=== PATIENT | female | born 1965 | race Caucasian/White ===

== ENCOUNTER → 2022-12-27 | Outpatient (OUT) | payer BC, SELFPAY ==
--- NOTE | 2022-12-27 10:32 | XR_ITS ---
The [address] [address] Patient Name: ANTIONETTE ANDRADE MRN: [id number] date: 1965 Sex: F Assigned Patient Location: [facility] Current Patient Location: RAD Accession/Order Number: [id number] Exam Date: 12/27/2022 10:38 Report Date: 12/27/2022 15:20 At the request of: BRUNO EDWARDS Procedure: XR ribs LT min 3V w CXR1V EXAMINATION: XR ribs LT min 3V w CXR1V HISTORY: Pleurodynia, R07.81 ; posterior, lateral, and anterior left rib pain since falling several days ago COMPARISON: No relevant comparison available. FINDINGS: LUNGS: Chronic elevation left hemidiaphragm and scarring within the lateral costophrenic angle. PLEURA: No pneumothorax, effusion, or pleural thickening. MEDIASTINUM: No visible mass or adenopathy. CARDIAC: No cardiomegaly or cardiac silhouette abnormality. RIBS: Old, healed left seventh rib fracture. OTHER: Negative. IMPRESSION: 1. No appreciable fracture or acute cardiopulmonary process. 2. Stable, old left seventh rib fracture lung with chronic diaphragm elevation/scarring within left lung base. Electronically authenticated by: JOSE MARIO Date: 12/27/2022 15:20
== END ==
LOC: RAD 10:26
PROVIDERS: PCP Family Medicine; Visit Provider Family Medicine
DX: R07.81 Pleurodynia (principal)
CPT/HCPCS: 71101

== ENCOUNTER 2023-03-07 08:01 | Outpatient (OUT) | payer BC, SELFPAY ==
--- NOTE | 2023-03-07 08:09 | CT_ITS ---
The [address] [address] Patient Name: ANTIONETTE ANDRADE MRN: [id number] date: 1965 Sex: F Assigned Patient Location: CT Current Patient Location: CT Accession/Order Number: [id number] Exam Date: 03/07/2023 08:13 Report Date: 03/07/2023 14:24 At the request of: DARRON SOLANO Procedure: CT chest wo con CT chest wo con HISTORY: History of left lung surgery. Solitary Pulmonary Nodule R91.1 COMPARISON: 12/09/2017. 06/19/2019. 02/13/2021. 02/25/2022. CT CHEST TECHNIQUE: Noncontrast axial CT images obtained from lung apices through lung bases. Coronal and sagittal reconstructions performed. Dose reduction techniques were achieved by using automated exposure control and/or adjustment of mA and/or kV according to patient size and/or use of iterative reconstruction technique. CT CHEST FINDINGS: Lower thyroid unremarkable. No axillary adenopathy. Thoracic spondylosis without acute bony process. Prior left thoracotomy and a few old chronic healed left rib deformities. Visualized upper abdomen demonstrates unchanged right hepatic lobe hemangioma back to 2018. Normal-sized adrenal glands. Normal heart and great vessel sizes. No mediastinal adenopathy. Atherosclerotic aorta without aneurysm. No pericardial effusion. 7 mm right apical noncalcified nodule on image 13 of series 3. Previous 6 in February 2022. 5 mm July 2021. 4 mm 2018. Just anterior and superomedial there is a chronic and unchanged focus of linear scarring back to 2019 not further follow-up. Prior postoperative change left upper lobectomy with associated volume loss and minimal scarring. No interval dominant mass lesion, active consolidation, or effusion. CT/CT chest wo con IMPRESSION: Continued gradual growth of right apical noncalcified nodule over multiple prior examinations. Suspicious for separate primary versus less likely slow-growing metastasis. Recommend CT-guided biopsy. Stable postoperative change in the left lung with lobectomy, volume loss and scarring. No other interval dominant lesion or acute process. Old chronic benign hepatic hemangioma. Electronically authenticated by: BENNETT SANCHEZ Date: 03/07/2023 14:24
[2023-03-07 08:11] LABS: Hemoglobin 16.9 g/dL (12.0-16.0)
--- NOTE | 2023-03-07 08:30 | RT_ITS ---
The [facility] Test Date: 2023-03-07 Pat Name: ANTIONETTE ANDRADE Department: Room: - Gender: Female Specialty Therapist: Suzy Vargas RRT : 1965 Requested By: Lam De La Torre Order Number: [id number] Reading MD: Lam De La Torre Interpretive Statements Pulmonary function testing was completed according to ATS criteria. Findings were considered accurate and reproducible. Both pre- and post-bronchodilator values utilized for spirometry. No prior studies available for comparison. Spirometry (based on pre-bronchodilator values): -FEV1/FVC: Low normal @ 72% -FEV1: Moderately reduced @ 65% -FVC: Reduced @ 70% -There is a positive bronchodilator response in FEV1 and FVC. Lung volumes by plethysmography: -RV: Normal @ 106% -TLC: Normal @ 90% Diffusion capacity: -DLCO: Mild reduction @ 71% when corrected for Hb 16.9g/dL -DLCO/VA: DLCO increases to 86% when corrected for alveolar volumes Flow-volume loop: -Moderate obstructive pattern Impressions: -Trend towards moderate obstruction on spirometry with normal lung volumes. Mild diffusion impairment which corrects for alveolar volumes as she had a partial lobectomy. Elevated hemoglobin could indicate secondary polycythemia. Overall study is compatible with COPD/emphysema with a bronchodilator response or asthma/COPD-overlap. Clinical correlation required. Electronically Signed On 03-14-2023 7:23:39 EDT by Lam De La Torre
[2023-03-07] MEDS: ALBUTEROL SULFATE 2.5 MG/3 ML VIAL NEB IH (09:08)
== END 2023-03-07 08:02 | disposition home or self-care (01) ==
LOC: CT 08:01
PROVIDERS: PCP Family Medicine; Visit Provider Internal Medicine
DX: R91.1 Solitary pulmonary nodule (principal); J43.2 Centrilobular emphysema
CPT/HCPCS: 36415; 71250; 85018; 94060; 94726; 94729

== ENCOUNTER 2023-03-15 11:27 | Outpatient (OUT) | payer BC, SELFPAY ==
[2023-03-18 03:07] LABS: Zinc Level 63 ug/dL (44-115)
== END 2023-03-15 11:28 | disposition home or self-care (01) ==
LOC: LAB 11:29
PROVIDERS: PCP Family Medicine
DX: L65.0 Telogen effluvium (principal)
CPT/HCPCS: 36415; 82607; 82728; 84439; 84481; 84630

== ENCOUNTER 2023-09-28 10:11 | Outpatient (OUT) | payer BC, SELFPAY ==
--- NOTE | 2023-09-28 10:16 | CT_ITS ---
The [address] [address] Patient Name: ANTIONETTE ANDRADE MRN: [id number] date: 1965 Sex: F Assigned Patient Location: CT Current Patient Location: CT Accession/Order Number: [id number] Exam Date: 09/28/2023 10:25 Report Date: 09/29/2023 11:59 At the request of: DARRON SOLANO Procedure: CT chest wo con EXAM: CT chest wo con HISTORY: Solitary Pulmonary Nodule R91.1 COMPARISON: 03/07/2023. TECHNIQUE: Noncontrast axial CT images obtained from lung apices through lung bases. Coronal and sagittal reconstructions performed. Dose reduction techniques were achieved by using automated exposure control and/or adjustment of mA and/or kV according to patient size and/or use of iterative reconstruction technique. FINDINGS: Lower thyroid unremarkable. No axillary adenopathy. Normal heart and great vessel sizes. No mediastinal adenopathy. Atherosclerotic aorta without aneurysm. No pericardial effusion. Right apical irregular pulmonary nodule, series 4 image 16, now measures 9 x 7 mm, previously 7 x 6 mm, when measured in a similar fashion. This has been seen on older examinations as well, measuring approximately 6 mm on February 2022, and 5 mm July 2021, and 4 mm on 2019. Left upper lobectomy changes again seen. No new consolidation, or pleural effusion. Mild degenerative thoracic spondylosis without acute bony process. Redemonstrated old chronic healed left rib deformities. Limited visualized upper abdomen again with a right hepatic lobe hemangioma. CT/CT chest wo con IMPRESSION: Further interval increase in the irregular solid nodule in the right lung apex. Attention on follow-up chest CT, PET/CT, versus tissue sampling. Electronically authenticated by: LIUDMILA ACHARYA Date: 09/29/2023 11:59
== END 2023-09-28 10:12 | disposition home or self-care (01) ==
LOC: CT 10:12
PROVIDERS: PCP Family Medicine; Visit Provider Internal Medicine
DX: R91.1 Solitary pulmonary nodule (principal)
CPT/HCPCS: 71250

== ENCOUNTER 2023-10-16 15:52 | Outpatient (OUT) | payer BC, SELFPAY ==
--- NOTE | 2023-10-16 17:00 | PE_ITS ---
[address] [address] Patient Name: ANTIONETTE ANDRADE MRN: [id number] date: 1965 Sex: F Assigned Patient Location: PETCT Current Patient Location: Accession/Order Number: [id number] Exam Date: 10/16/2023 16:53 Report Date: 10/17/2023 00:37 At the request of: DARRON SOLANO Procedure: PET skull to mid thigh NUCLEAR MEDICINE PET/CT HISTORY: Solitary pulmonary nodule. COMPARISON: CT chest 09/28/2023. PET/CT 05/17/2023. METHOD: 14.46 mCi of F-18 FDG was administered intravenously. PET images were obtained from the skull base through the midthigh levels in the axial plane. Reformatted images were performed in the sagittal and coronal planes. A low-dose, noncontrast CT scan was performed for attenuation correction and anatomical localization. A low dose, noncontrast and nondiagnostic CT scan was performed for attenuation correction and anatomic localization. Mediastinal blood pool SUV max 2.6 using the patient's body weight as the normalization method. FINDINGS: HEAD AND NECK: There are no metabolically active lymph nodes in the neck. CHEST: There are no metabolically active mediastinal, hilar, or axillary lymph nodes. The major airways are patent. There is no pericardial effusion. There is no evidence of abnormal metabolic uptake in the esophagus. There is no evidence of abnormal metabolic uptake in the lung parenchyma. There is a stable metabolically active right apical pulmonary nodule measuring 7 x 4 mm with a maximum SUV of 8.6. There are emphysematous changes. There are no pleural effusions. There is no pneumothorax. ABDOMEN AND PELVIS: There is no evidence of abnormal metabolic activity in the liver or adrenal glands. There is a stable nonmetabolically active solid mass in the right lobe of the liver. There is no evidence of abnormal metabolic active lymph nodes in the abdomen or pelvis. There is no free fluid. There is physiologic uptake in the urinary system and bowel. There is a nonmetabolically active stable calcified pelvic mass. There is a benign left adrenal adenoma. MUSCULOSKELETAL: There is no evidence of abnormal metabolically active bony lesions. PET/PET skull to mid thigh IMPRESSION: Stable metabolically active right apical pulmonary nodule. Recommend tissue sampling if not previously performed. Emphysema. Benign left adrenal adenoma. Stable non-metabolically active calcified pelvic mass. Stable non-metabolically active solid mass in the right lobe of the liver. Electronically authenticated by: BETSY MAXWELL Date: 10/17/2023 00:37
== END 2023-10-16 15:53 | disposition home or self-care (01) ==
LOC: PETCT 15:52
PROVIDERS: PCP Family Medicine; Visit Provider Internal Medicine
DX: R91.1 Solitary pulmonary nodule (principal); J43.9 Emphysema, unspecified
CPT/HCPCS: 78815; A9552

== ENCOUNTER 2023-11-09 12:36 | Outpatient (OUT) | payer BC, SELFPAY ==
[2023-11-09 12:47] LABS: Hemoglobin 15.2 g/dL (12.0-16.0)
--- NOTE | 2023-11-09 13:00 | RT_ITS ---
The [facility] Test Date: 2023-11-09 Pat Name: ANTIONETTE ANDRADE Department: Room: - Gender: Female Boiling House Oiler: Lexy Max RRT : 1965 Requested By: [id number] Order Number: [id number] Reading MD: Lam De La Torre Interpretive Statements Pulmonary function testing was completed according to ATS criteria. Findings were considered accurate and reproducible. Both pre- and post-bronchodilator values utilized for spirometry. Spirometry (based on pre-bronchodilator values): -FEV1/FVC: Low normal @ 71% -FEV1: Moderately reduced @ 72% (1.71L) -FVC: Mildly reduced @ 79% -ZEV07-23%: Reduced @ 49% -There is no significant bronchodilator response. Lung volumes by plethysmography (based on pre-bronchodilator values): -RV: Increased @ 133% -TLC: Normal @ 106% (4.87L) -Airway resistance: Increased @ 140% -Airway conductance: Decreased @ 37% Diffusion capacity: -DLCO: Mild reduction @ 72% when corrected for Hb 15.2g/dL Flow-volume loop: -Moderate obstructive pattern Prior PFT from 03/07/2023 and 12/28/2017 were available for comparison. -FEV1: 65% (1.54L) and 87% (2.19L) respectively -FVC: 70% and 88% respectively -T% (4.11L) and 109% (5.03L) respectively -DLCO: 71% and 76% respectively Impressions: -Spirometry trends towards moderate obstruction without a bronchodilator response. Elevated RV suggests air trapping. Mild diffusion impairment. Overall study is consistent with emphysema/COPD. There was a decline in pulmonary function across all parameters from 2017 to 2022, but since then, there has been mild improvement in spirometry and TLC. Clinical correlation required. Electronically Signed On 11-13-2023 7:53:47 EDT by Lam De La Torre
[2023-11-09] MEDS: ALBUTEROL SULFATE 2.5 MG/3 ML VIAL NEB IH (13:58)
== END 2023-11-09 12:37 | disposition home or self-care (01) ==
LOC: CARD 12:37
PROVIDERS: PCP Family Medicine; Visit Provider Thoracic Surgery (Cardiothoracic Vascular Surgery)
DX: C34.92 Malignant neoplasm of unspecified part of left bronchus or lung (principal); R06.02 Shortness of breath
CPT/HCPCS: 36415; 85018; 94060; 94726; 94729

== ENCOUNTER 2023-11-14 10:03 | Outpatient (OUT) | payer BC, SELFPAY ==
--- NOTE | 2023-11-14 11:04 | W.PM.PROCNOT ---
Date of procedure: 11/14/23 Procedure: Procedure 6-minute walk Date 11/14/2023 Indication Non-small cell lung carcinoma of right lung [facility] 1 Procedure A 6-minute walk was initiated according to standard protocol. Resting BP: 130/90 HR: 73 SpO2: 94% FiO2: Room air Kye: 0 Patient ambulated for a total of 6 minutes. Maximum HR was 95. Lowest SpO2 was 93% on room air. Maximum Kye was 2. Patient was recovered Recovery BP: 140/80 HR: 70 SpO2: 95% FiO2: Room air Total number of stops: None Total Distance walked: 354m which is 95% of predicted walk distance Impressions: No ambulatory desaturations. Excellent walk distance. Asymptomatic. Recommendations: No supplemental O2 required on ambulation. Clinical correlation required.
== END 2023-11-14 10:04 | disposition home or self-care (01) ==
LOC: CARD 10:03
PROVIDERS: PCP Family Medicine
DX: C34.91 Malignant neoplasm of unspecified part of right bronchus or lung (principal)
CPT/HCPCS: 94618

== ENCOUNTER 2024-08-23 09:15 | Outpatient (OUT) | payer BC, SELFPAY ==
--- NOTE | 2024-08-23 09:18 | CT_ITS ---
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 Dose reduction techniques were achieved by using automated exposure control and/or adjustment of mA and/or kV according to patient size and/or use of iterative reconstruction technique. FINDINGS: LUNGS: Stable speculated nodular opacity within right lung medial apex and stable tiny nodular/wispy opacity within lateral apex. Prior left lobectomy. Stable lateral left midlung pleural scarring. Mild emphysematous changes bilaterally. PLEURA: No mass, effusion, or pneumothorax. VASCULATURE: No abnormality. MARY: Multiple calcified left hilar lymph nodes. No enlarged or suspicious lymph nodes. MEDIASTINUM: No mass or pathologic adenopathy. CARDIAC: No enlargement, pericardial thickening, or pericardial effusion. Coronary Artery calcifications: AORTA: No aneurysm or dissection. CHEST WALL: No mass or axillary adenopathy BONES: Prior resection of a small segment of posterior left sixth rib and suspect old healed fracture of lateral seventh rib. LIMITED ABDOMEN: Stable 3.1 cm irregular hypodense/heterogeneous area within anterior right hepatic lobe which has been present since at least 12/16/2017 and demonstrate early enhancement on that study suggesting a benign lesion, possibly a flash -fill hemangioma. Limited images of the upper abdomen. OTHER: Negative. CT/CT chest wo con IMPRESSION: 1. Stable spiculated nodular opacity within right lung apex and adjacent tiny nodular/wispy opacity. Neoplasm cannot be excluded, but there is been no change of address clerk the past 2 studies. Consider follow-up imaging in one year. 2. Stable left lung surgical changes and scarring. 3. No new lesions. 4. Stable hepatic lesions favoring benign etiology or possible flash-fill hemangioma.. Electronically authenticated by: JOSE MARIO Date: 08/26/2024 09:26
--- OUTSIDE RECORDS SUMMARY | 2024-08-23 09:19 | XMS_ITS | CCD ---
Author Organization [facility] CliniSymo Care Team Providers Care Drill Press Hand Name Role Phone CONNOR SOLANOHAN Attending Unavailable SAMSA, DARRON Admitting Unavailable GRACE, DR SHARDA Mcgovern Primary Care Unavailable Lexus, DR Palacio Consulting Unavailable SAMSA, DARRON Consulting Unavailable GRACE, DR SHARDA Mcgovern Admitting Unavailable WEST, DR VESTA Marcelo Consulting Unavailable EDWARDS, DR SHARDA Mcgovern Primary Care Unavailable EDWARDS, DR SHARDA Mcgovern Attending Unavailable EDWARDS, DR SHARDA Mcgovern Consulting Unavailable Lexus, DR Palacio Consulting Unavailable SAMSA, DARRON Attending Unavailable GARCE, DR SHARDA Mcgovern Primary Care Unavailable SAMSA, DARRON Admitting Unavailable SAMSA, DARRON Consulting Unavailable SAMSA, DARRON Attending Unavailable EDWARDS, DR SHARDA Mcgovern Primary Care Unavailable SAMSA, DARRON Admitting Unavailable EDWARDS, DR SHARDA Mcgovern Primary Care Unavailable SAMSA, DARRON Attending Unavailable SAMSA, DARRON Admitting Unavailable EDWARDS, DR SHARDA Mcgovern Primary Care Unavailable EDWARDS, DR SHARDA Mcgovern Consulting Unavailable GRACE, DR SHARDA Mcgovern Attending Unavailable EDWARDS, DR SHARDA Mcgovern Admitting Unavailable Sharda Edwards Unavailable Sharda Edwards Unavailable Unavailable Unavailable Dr. Sharda Edwards Primary Care Unav ailable Russ, Dr. Darron Palma Referring Unavailab Lucia Thomason Attending Unavailable MD Sharda Edwards Primary Care Provider [phone] MD Real Kowalski Attending Provider [phone] Real Kowalski Admitting Unavailable Real Kowalski Attending Unavailable Sharda Edwards Primary Care Unavailable BASIL, KELTON Attending Unavaila ble HADZIAHMETRADHA, KELTON Attending Unavaila ble HADZIAHMETRADHA, REBECCAA Referring Unavaila ble MELODY SANTANA Referring Unavailable HADZIAHMETOVIC, MERSIHA Referring Unavaila ble HADZIAHMETOVIC, MERSIHA Attending Unavaila ble OMBALLI, MOHAMED Attending Unavailable OMBALLI, MOHAMED Referring Unavailable HADZIAHMETOVIC, MERSIHA Attending Unavaila ble DERISO, REAL Referring Unavailable DERISO, REAL Referring Unavailable DERISO, REAL Referring Unavailable OMBALLI, MOHAMED Referring Unavailable HADZIAHMETOVIC, MERSIHA Attending Unavaila ble DERISO, REAL Referring Unavailable OMBALLI, MOHAMED Attending Unavailable HADZIAHMETOVIC, MERSIHA Referring Unavaila ble Allergies Allergy Classification Reported Allergen(s) Allergy Type Date of Onset Reaction(s) Facility (1 source) oxaprozin Drug Allergy 4 [facility] Repository (1 source) Losartan Drug Allergy 3 [facility] Other (8 sources) meloxicam; Translations: [MELOXICAM] Drug Allergy 8 FATIGUE, very tired [facility] (16 sources) oxaprozin; Translations: [OXAPROZIN] Drug Allergy 8 TEARFUL, makes patient cry, makes patient cry, TEARFUL [facility] (1 source) meloxicam Drug Allergy 8 [facility] Repository (1 source) oxaprozin Drug Allergy 8 [facility] Repository (8 sources) Mobic *ANALGESICS - ANTI-INFLAMMATO RY* Propensity to adverse reactions Comment:makes her tired [employer] Other (2 sources) Mobic *ANALGESICS - ANTI-INFLA Allergy to substance 4 Comment:makes her tired [facility] (1 source) varenicline; Translations: [VARENICLINE] Drug Allergy 4 [facility] Repository (1 source) ALLERGIES NOT ON FILE; Translations: [ALLERGIES NOT ON FILE] Propensity to adverse reactions (disorder) [facility] Repository Medications Current Medications Medication Drug Class(es) Dates Sig (Normalized) Sig (Original) ALPRAZolam 0.5 mg oral tablet (18 sources) Benzodiazepine Start: 11-13-2023 End: 02-17-2024 take 0.5 mg by mouth twice daily Alprazolam Active 0.5 MG PO Twice daily 60 February 17, 2024 7:36am Start: 06-12-2023 take 1 tablet by dorinda th every twelve hours Start: 11-10-2022 take 1 tablet by dorinda th every twelve hours ALPRAZolam 0.5 MG 1 tablet Orally Twice a day for 30 days Oct, Active take 1 tablet by dorinda th every twelve hours ALPRAZolam 0.25 MG 1 tablet Orally Twice a day Active amLODIPine 10 mg oral tablet (16 sources) Dihydropyridine Calcium Channel Brayan Start: 09-08-2023 take 10 mg by mouth once daily Amlodipine Active 10 MG PO Daily September 08, 2023 1:00am Start: 11-10-2022 take 1 tablet by dorinda th every twenty-four hours amLODIPine Besylate 10 MG 1 tablet Orally Once a day for 30 days Oct, Active take 1 tablet by mouth once pawel y amLODIPine Besylate 5 MG TAKE 1 TABLET BY MOUTH EVERY DAY for 30 Active ascorbic acid 500 mg oral ca psule (6 sources) Vitamin C Start: 11-13-2023 120 actuat budesonide 0.16 mg/actuat / formoterol fumarate 0.0048 mg/actuat / glycopyrrolate 0.009 mg/actuat metered dose inhaler (13 sources) Corticosteroid, beta2-Adrenergic Agonist Start: 11-13-2023 take 2 puff(s) by inhalation twice daily take 2 puff(s) by inhalation twi ce daily CoQ10 100 MG (11 sources) CoQ10 100 MG as directed Orally Active Fish Oils (10 sources) take 1 capsule by mouth once smooth ly take 1 capsule by mouth once smooth ly Fish Oil 1000 MG 1 capsule Orally Once a day Active 24 hr metoprolol succinate 100 mg extended release oral tablet (20 sources) beta-Adrenergic Brayan Start: 11-13-2023 End: 11-24-2023 take 1 tablet by mouth once daily Metoprolol Succinate Active 100 MG PO Daily November 24, 2023 10:34am Free[employer]Si tablet Orally Once a day; Note: Source Status: Continue; Provider: Grace Mcgovern Start: 10-02-2023 End: 11-13-2023 take 1 tablet by mouth once daily Metoprolol Succinate Discontinued 0 .ROUTE .COMPLEX October 02, 2023 1:07pm November 13, 2023 1:36pm TAKE 1 TABLET BY MOUTH EVERY DAY FOR 30 DAYS Start: 01-18-2018 End: 10-02-2023 take 100 mg by mouth once daily Metoprolol Succinate Discontinued 100 MG PO Daily January 18, 2018 12:00am October 02, 2023 1:07pm take 1 tablet by dorinda th once daily Metoprolol Tartrate 100 MG Oral Tablet TAKE 1 TABLET DAILY. Quantity: 0 Refills: 0 Ordered: 04-Apr-2023 DO Active [place] 2-Erl-Dmg-Fish Oil (Fish Oil) 100-160-1,000 mg capsule (2 sources) Start: 11-13-2023 [place] 3-Dha-Ep a-Fish Oil (Fish Oil) 100-160-1,000 mg capsule Active CAP PO November 13, 2023 12:00am PARoxetine hydrochloride 20 mg oral tablet (18 sources) Serotonin Reuptake Inhibitor Start: 09-12-2023 take 20 mg by mouth once daily Paroxetine Hcl Active 20 MG PO Daily September 12, 2023 1:00am Start: 08-26-2023 take 1 tablet by dorinda th every twenty-four hours Paxil 40 MG 1 tablet in the morning Orally Once a day for 30 day(s) Aug, Active Start: 01-18-2018 End: 09-08-2023 take 1 tablet by mouth once daily Paroxetine Hcl (Paxi l Cr) 25 mg Tablet Extended Release 24 Hr Discontinued 25 MG PO Daily January 18, 2018 12:00am September 08, 2023 3:41pm traMADol hydrochloride 50 mg oral tablet (1 source) Opioid Agonist Start: 12-27-2022 take 1 tablet by mouth three times daily as needed traMADol HCl 50 MG 1 tablet as needed Orally tid prn for 7 days Dec, Active Vitamin B Complex (10 sources) Vitamin B Comple x - as directed Orally Active vitamin b12 5 mg oral capsule (2 sources) Vitamin B12 Start: 11-13-2023 take 5000 ug by mouth once daily Cyanocobalamin (Vitamin B-12) Active 5000 MCG PO Daily November 13, 2023 12:00am Vitamin C 500 MG (7 sources) Vitamin C 500 MG as directed Orally Active Completed/Discontinued Medications Medication Drug Class(es) Dates Sig (Normalized) Sig (Original) acetaminophen 325 mg / HYDROcodone bitartrate 5 mg oral tablet (4 sources) Opioid Agonist Start: 02-02-2018 End: 08-28-2018 take 2 tablets by mouth four times daily Hydrocodone-Acetam inophen Discontinued 2 TAB PO Four times daily 56 February 02, 2018 12:00am August 28, 2018 4:00pm [id number] 200 actuat albuterol 0.09 mg/actuat metered dose inhaler (16 sources) beta2-Adrenergic Agonist Start: 11-13-2023 End: 11-13-2023 take 1 puff(s) by inhalation every four hours as needed take 1 puff(s) by inhalation lucita ry four hours as needed ProAir HFA PRN N ot-Taking ProAir HFA PRN A ctive B Complex CAPS (1 source) B Complex CAPS T MALACHI 1 CAPSULE Daily Quantity: 0 Refills: 0 Ordered: 04-Apr-2023 DO Active chlorhexidine gluconate 1.2 mg/ml mouthwash (4 sources) Start: End: Chlorhexidine Gluconate Discontinued 15 ML MUCOUS MEM Three times daily February 02, 2018 12:00am March 13, 2018 1:31pm Coenzyme Q10 (H2q Coq10) 200 mg/gram powder (2 sources) Start: End: take 1 mg by mouth once Coenzyme Q10 (H2q Coq10) 200 mg/gram powder Discontinued MG PO November 13, 2023 12:00am November 13, 2023 1:36pm furosemide 20 mg oral tablet (4 sources) Loop Diuretic Start: End: take 1 tablet by mouth once daily in the morning Furosemide (Lasix) 20 mg tablet Discontinued 20 MG PO Daily February 02, 2018 12:00am March 13, 2018 1:31pm take in morning losartan potassium 50 mg oral tablet (3 sources) Angiotensin 2 Receptor Brayan take 1 tablet by mouth once daily Losartan Potassium 50 MG TAKE 1 TABLET BY MOUTH EVERY DAY for 90 Not-Taking Milk thistle extract (1 source) Milk Thistle Ext ract CAPS TAKE 1 CAPSULE Daily Quantity: 0 Refills: 0 Ordered: 04-Apr-2023 DO Active minoxidil 2.5 mg oral tablet (1 source) Arteriolar Vasodilator take 1 tablet by mouth once daily Minoxidil 2.5 MG Oral Tablet TAKE 1 TABLET DAILY. Quantity: 0 Refills: 0 Ordered: 04-Apr-2023 DO Active Multi For Her 50+ TABS (1 source) Multi For Her 50 + TABS TAKE 1 TABLET DAILY. Quantity: 0 Refills: 0 Ordered: 04-Apr-2023 DO Active 24 hr nicotine 0.875 mg/hr transdermal system (4 sources) Cholinergic Nicotinic Agonist Start: End: apply 1 dose transdermal route once daily, then apply 1 dose transdermal route every twenty-four hours Nicotine (Nicoderm Cq) 21 mg/24 hr Patch 24 Hour Discontinued 1 PATCH TRANSDERML Daily January 18, 2018 12:00am August 28, 2018 4:00pm Tiotropium-Olodaterol (4 sources) Anticholinergic, beta2-Adrenergic Agonist Start: End: Tiotropium-Olodatero l (Stiolto Respimat) 2.5-2.5 mcg/actuation Mist Discontinued 2 PUFF INHALATION Daily August 28, 2018 1:00am November 13, 2023 1:37pm Start: 08-28-2018 Tiotropium-Olo daterol (Stiolto Respimat) 2.5-2.5 mcg/actuation Mist Active 2 PUFF INHALATION Daily August 28, 2018 1:00am potassium chloride 10 meq extended release oral capsule (4 sources) Start: 02-02-2018 End: 03-13-2018 take 10 mEq by mouth once daily Potassium Chloride Discontinued 10 MEQ PO Daily February 02, 2018 12:00am March 13, 2018 1:31pm 60 actuat tiotropium 0.10222 mg/actuat inhalation spray (4 sources) Anticholinergic Start: 01-18-2018 End: 08-28-2018 take 1 puff(s) by inhalation once daily Tiotropium [place] (Spiriva Respimat) 1.25 mcg/actuation Mist Discontinued 2 PUFF INHALATION Daily January 18, 2018 12:00am August 28, 2018 4:01pm tiZANidine 4 mg oral tablet (3 sources) Central alpha-2 Adrenergic Agonist take 1 tablet by mouth every eight hours tiZANidine HCl 4 MG 1 tablet as needed Orally Three times a day PRN Not-Taking valACYclovir 1000 mg oral tablet (3 sources) Herpesvirus Nucleoside Analog DNA Polymerase Inhibitor, Herpes Simplex Virus Nucleoside Analog DNA Polymerase Inhibitor, Herpes Zoster Virus Nucleoside Analog DNA Polymerase Inhibitor take 2 tablets by mouth every twelve hours Valtrex 1 GM 2 tablet Orally TWICE A DAY Not-Taking Problems Active Problems Problem Classification Problem Date Documented Da te Episodic/Chronic Anxiety disorders (17 sources) Anxiety; Translations: [Anxiety disorder, unspecified] Chronic Cancer of bronchus; lung (20 sources) Malignant neoplasm of upper lobe, bronchus or lung; Translations: [Malignant neoplasm of upper lobe, left bronchus or lung] Onset: 4 03-14-2018 Chronic Chronic obstructive pulmonary disease and bronchiectasis (16 sources) Centriacinar emphysema; Translations: [Centrilobular emphysema] 01-29-2019 Chronic Disorders of lipid metabolism (13 sources) Hypertriglyceridemia; Translations: [Pure hyperglyceridemia] Chronic Esophageal disorders (11 sources) Gastroesophageal reflux disease; Translations: [GERD (gastroesophageal reflux disease)] Chronic Esophageal disorders (11 sources) Esophagitis; Translations: [Esophagitis] Episodic Essential hypertension (20 sources) Essential (primary) hypertension; Translations: [Essential hypertension] Onset: 2 Chronic Gastritis and duodenitis (11 sources) Gastritis; Translations: [Antral gastritis] Episodic Headache; including migraine (11 sources) Muscular headache ; Translations: [Tension-type headache, unspecified, not intractable] Chronic Nausea and vomiting (11 sources) Nausea; Translations: [Nausea] Episodic Nonspecific chest pain (12 sources) Chest pain, unspecified; Translations: [Left sided chest pain] Onset: 2 Episodic Other and unspecified benign neoplasm (11 sources) Benign neoplasm of liver and/or biliary ducts; Translations: [Benign neoplasm of liver] Episodic Other circulatory disease (1 source) H/O: hypertension; Translations: [Personal history of other diseases of circulatory system] Episodic Other gastrointestinal disorders (11 sources) Dysphagia; Translations: [Dysphagia] Episodic Other liver diseases (4 sources) Lesion of liver; Translations: [Liver disease, unspecified] 01-18-2018 Chronic Other lower respiratory disease (10 sources) Solitary nodule of lung; Translations: [Solitary pulmonary nodule] Episodic Other lower respiratory disease (11 sources) Lung field abnormal; Translations: [Other nonspecific abnormal finding of lung field] Episodic Other lower respiratory disease (1 source) Pleurodynia Episodic Other lower respiratory disease (1 source) Nodule of lung; Translations: [Solitary pulmonary nodule] Episodic Other lower respiratory disease (2 sources) Other nonspecific abnormal finding of lung field; Translations: [Other nonspecific abnormal finding of lung field] Onset: 3 Episodic Other nutritional; endocrine; and metabolic disorders (10 sources) Obesity; Translations: [Obesity, unspecified] Chronic Other nutritional; endocrine; and metabolic disorders (1 source) Obesity, unspecified; Translations: [Obesity] Chronic Other nutritional; endocrine; and metabolic disorders (10 sources) Overweight; Translations: [Overweight] Episodic Other nutritional; endocrine; and metabolic disorders (1 source) Overweight; Translations: [Body mass index (BMI) of 25.0 to 29.9] Episodic Other screening for suspected conditions (not mental disorders or infectious disease) (1 source) Encounter for screening mammogram for malignant neoplasm of breast Episodic Other skin disorders (10 sources) Epidermoid cyst of skin; Translations: [Follicular cyst of the skin and subcutaneous tissue, unspecified] Episodic Other skin disorders (1 source) Follicular cyst of the skin and subcutaneous tissue, unspecified; Translations: [Subcutaneous cyst] Episodic Other skin disorders (1 source) H/O: eczema; Translations: [Personal history of diseases of skin and subcutaneous tissue] Episodic Other upper respiratory infections (11 sources) Acute sinusitis; Translations: [Acute sinusitis, unspecified] Episodic Residual codes; unclassified (11 sources) Encounter for cosmetic surgery; Translations: [Cosmetic procedure] Episodic Residual codes; unclassified (11 sources) Nicotine user; Translations: [Tobacco use] Episodic Residual codes; unclassified (11 sources) Tobacco use; Translations: [Tobacco use and exposure] Episodic Screening and history of mental health and substance abuse codes (12 sources) History of tobacco use; Translations: [Personal history of nicotine dependence] Episodic Spondylosis; intervertebral disc disorders; other back problems (1 source) Other spondylosis with radiculopathy, cervical region; Translations: [OTH SPONDYLS RADICULOPATHY CERV RGN] Onset: 2 Chronic Spondylosis; intervertebral disc disorders; other back problems (14 sources) Radiculopathy, cervical region; Translations: [Right cervical root neuropathy] Onset: 2 Episodic Substance-related disorders (15 sources) Mental disorder due to drug; Translations: [Nicotine dependence, cigarettes, with unspecified nicotine-induced disorders] 01-18-2018 Chronic Unclassified (2 sources) OTV; Translations: [OTV] Onset: 4 Unclassified (2 sources) Lung Cancer; Translations: [Lung Cancer] Onset: 4 Past or Other Problems Problem Classification Problem Date Documented Da te Episodic/Chronic Other lower respiratory disease (9 sources) Solitary pulmonary nodule; Translations: [SOLITARY PULMONARY NODULE] Onset: 02-25-2022 Episodic Results Test Name Value Interpretation Reference Range Facility CT CHEST WO IV CONTRASTon CT CHEST WO IV CONTRAST History: [Malignant neoplasm right upper lobe of lung status post radiation therapy.] Procedure: Standard CT of the [chest without contrast] was performed. Automatic exposure control was utilized for dosage reduction technique. Appropriate two-dimensional reconstructions were obtained. All CT scans at this facility use dose modulation, iterative reconstruction, and/or weight based dosing when appropriate to reduce radiation dose to as low as reasonably achievable.All CT scans at this facility use dose modulation, iterative reconstruction, and/or weight based dosing when appropriate to reduce radiation dose to as low as reasonably achievable. Findings: [Comparison is made to 10/27/2023.] CT of the chest without contrast does not demonstrate any mediastinal adenopathy. The elver are difficult to evaluate without intravenous contrast. There is no pleural effusion. Left subpleural opacity at the operative site and this strandy opacities in the left lower lobe are stable. There is no new left lung abnormality. A 1.0 x 0.6 cm spiculated right upper lobe opacity with bands of opacity extending to the pleura measured 0.9 x 0.6 cm on 10/27/2023. A separate 2-3 mm subpleural right upper lobe opacity (series 3 image 56/[id number] has not convincingly changed. There is no new right pulmonary opacity. Postoperative changes within the ribs and chest wall are again noted. Low-attenuation area in the liver measures 3.1 x 2.7 cm on the current examination and 3.2 x 2.6 cm on the prior examination. IMPRESSION: Impression: [There is been no definite change since 10/27/2023. The spiculated right upper lobe opacity, the 2-3 mm more peripheral right upper lobe opacity, and the postsurgical changes within the chest are stable. There is no new pulmonary parenchymal opacity or pleural effusion.] Electronically signed: Chuy Jerome. Not Vldtd Invalid Interpretation Code [facility] POCT GLUCOSE METER UNSOLICIT ED RESULTSon 01-04-2024 Glucose [Mass/Vol] 115 mg/dL High 70-105 [facility] Comment on above: Order Comment: Waive d Testing in the ED is performed under the ED CLIA certificate #[id number]. Result Comment: [email or web address] Performed By: #### L [id number] ####[facility] (BEAKER)[address] [place] [address] Hemoglobin [Mass/volume] in Bloodon 11-09-2023 Hemoglobin (Bld) [Mass/Vol] 15.2 g/dL 12.0-16.0 [facility] Orders Onlyon 11-03-2023 Orders Only [id number] Marv Andrade 1965 F Date Provider Department Center 11/03/2023 MELODY PALOMARES [facility] Family History Problem Relation Age of Onset Lung cancer Father Lung cancer Sister Family Status - Relation Status Age at Father Sister Normal [facility] HPon 10-27-2023 HP ---- -------- Attestation signed by Melody Santana MD at 10/27/2023 11:59 AM Re-explained the procedure to the patient along with the associated risk of pneumothorax, bleeding, hypoxia, and respiratory failure. Patient is agreeable and will proceed with the scheduled Robotic bronchoscopy and FNA, TBBX, and EBUS TBNA Melody Santana MD Interventional Pulmonary Medicine Pulmonary and Critical Care Medicine [facility] -------- H&P reviewed. The patient was examined and there are no changes to the H&P. In addition Physical exam General: Alert and oriented x 3 Pulmonary: Clear to auscultate bilaterally Heart: Regular rate and rhythm, normal S1-S2 Abdomen: Soft nontender Extremity: No leg edema Plan -Will proceed with ION robotic TBBx+ TBNA, with EBUS -Procedure was reexplained to the patient and her at bedside - Further recommendations to follow [facility] NON-ASSEMBLY INSTRUCTIONS WRITER CYTOLOGY - CELLULAR EXAMon 10-27-2023 LAB AP ADDENDUM 1 [facility] Comment on above: Result Comment: A. I mmunostains show tumor cells are positive for TTF-1 and negative for p63. Controls were adequate. 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 Addendum electronically signed by Yohana Cobb MD on 11/09/2023 at 3:18 PM Performed By: #### L [id number] ####[facility] (TOVA)[address] [place] [address] LAB AP ASR DISCLAIMER The interpretation of this case included the use of immunohistochemistry or special stains. These tests have not been cleared or approved by the U.S. Food and Drug Administration. The FDA has determined that such clearance or approval is not necessary. These tests are used for clinical purposes and should not be regarded as investigational or for research. This laboratory is certified to perform high complexity testing under the Clinical Laboratory Improvement Amendments of 1998. [facility] Comment on above: Performed By: #### L [id number] ####[facility] ([facility])[address] [place] [address] LAB AP CASE REPORT [facility] Comment on above: Result Comment: Non- gynecologic Cytology Case: [id number] Authorizing Provider: Melody Santana MD Collected: 10/27/2023 1256 Ordering Location: [facility] Main Operating Room Received: 10/27/2023 6638 Pathologist: Yohana Cobb MD Specimens: A) - Lung, Right Upper Lobe, right upper lobe ION FNA B) - Bronchoalveolar lavage, right upper lobe, RUL BAL Performed By: #### L [id number] ####[facility] [place] [address] LAB AP CLINICAL INFORMATION 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 There is scant tumor present in the cell blocks for both parts A and B. A few immunostains have been ordered in an attempt to further classify this tumor, however, additional testing will likely be extremely limited. Normal [facility] Comment on above: Performed By: #### L [id number] ####[facility] [place] [address] LAB AP GROSS DESCRIPTION Normal [facility] Comment on above: Result Comment: A. 1 air-dried slide, 1 alcohol-fixed slide, 30 mL CytoLyt with hazy, red fluid and clots B. 15 mL cloudy, red fluid Performed By: #### L [id number] ####[facility] ([facility])[address] [place] [address] LAB AP INTRAOPERATIVE CONSULTATION Normal [facility] Comment on above: Result Comment: A. L hitesh, Right Upper Lobe. Rapid on-site evaluation was performed by Yamileth Parekh MD. The material examined during rapid on-site evaluation was deemed adequate for diagnosis. Pass #1: Adequate Pass #2: Defer - cell block Pass #3: Defer - cell block Pass #4: Defer - cell block Pass #5: Defer - cell block *Only select material is examined during the on-site evaluation. Final diagnosis is pending the review of all material submitted.* Performed By: #### L [id number] ####[facility] ([facility])[address] [place] [address] LAB AP MICROSCOPIC DESCRIPTION [facility] Comment on above: Result Comment: A. S atisfactory for evaluation. Examination of the prepared smears and cell block reveals tumor cells arranged in sheets and as single cells with enlarged nuclei, vacuolated cytoplasm, irregular chromatin, and prominent nucleoli in a background of blood. B. Satisfactory for evaluation. Examination of the ThinPrep slide and cell block reveals rare tumor cells with similar morphology to those identified in part A. Performed By: #### L [id number] ####[facility] ([facility])[address] [place] [address] LAB AP REPORT FINAL DIAGNOSIS NARRATIVE [facility] Comment on above: Result Comment: A. L hitesh, right upper lobe, Ion-guided fine needle aspiration: - Non-small cell carcinoma. - See comment. B. Lung, right upper lobe, bronchoalveolar lavage: - Non-small cell carcinoma. - Rare tumor cells present in cell block. Performed By: #### L [id number] ####[facility] ([facility])[address] [place] [address] NURSNOTEon 10-27-2023 NURSNOTE Discharge instructio forest discussed with patient and pt's . Stated understanding. [facility] NURSNOTE Portable Chest x-ray obtaine [facility] POCT GLUCOSE METER UNSOLICIT ED RESULTSon 10-27-2023 Glucose [Mass/Vol] 129 mg/dL High 70-105 [facility] Comment on above: Order Comment: Waive d Testing in the ED is performed under the ED CLIA certificate #[id number]. Result Comment: ltol les Performed By: #### L [id number] #### [facility] ([facility]) [address] [place] [address] [id number] 10-20-2023 [id number] Nothing to Eat or Dr ink, including Candy, Gum, Mints, and Tobacco after Midnight the night before surgery. Take XANAX if needed, AMLODIPINE, METOPROLOL, PAROXETINE with a sip of water the day of surgery. Use your inhaler the day of surgery. Hold Vitamins, Supplements, and NSAIDS for 1 week prior to surgery. Hold all other meds the morning of surgery. 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 A responsible adult to stay with you for 24 hours in case of an emergency. Can be same as above. The highest risk of complications is within the first 24 hours after sedation/anesthesia. Nothing to eat or drink after midnight the night before surgery. This includes gum, candy, mints, and lozenges. No alcohol, marijuana, or tobacco products including vaping for 24 hours. Please brush your teeth; don't swallow the toothpaste or water. If you use dentures, wear them but do not use paste. Please leave any other removable dental hardware at home. Do not put in contact lenses. Do not wear perfume, make-up, nail andorran, or lotions on the day of your surgery or procedure. Follow skin-prep/wipe instructions as below if required. Bring with you: *Insurance card *Photo ID *Medication list *Co-pay for visit/prescriptions If applicable: *Rescue inhalers *Green bracelet from lab *CPAP or BiPAP machine, if staying overnight *Any braces, splints, or equipment ordered preoperatively *Remote controls for implanted devices Leave at home: *Purse/Wallet/Wilkins- unless needed for co-pay *Cell phone (can leave with family/friend or place in locker if needed) *Jewelry (including piercings and wedding bands) *If not possible, ask the person who is waiting with you to keep them Children under the age of 12 will not be allowed into patient care areas. We will call you between 3pm and 4pm the day before your surgery to give you an arrival time. If you do not receive this call, have any questions, or need to make any changes, please call [phone]. Notify your surgeon if you develop any illness such as a cold, cough, fever, sore throat or vomiting between now and your surgery. Thank you for entrusting us with your care. [facility] Surgical Services Team Normal [facility] Prep for Procedureon 10-19-2 024 Prep for Procedure [id number] Marv Andrade 1965 F Date Provider Department Center 10/20/2023 MELODY PALOMARES [facility] JOSE ALEJANDRO Family History Problem Relation Age of Onset Lung cancer Father Lung cancer Sister Family Status - Relation Status Age at Father Sister [facility] HPon 10-19-2023 HP ---- -------- Attestation signed by Melody Santana MD at 10/19/2023 6:15 PM Total time spent on day of encounter: 30 minutes Attending attestation: GC: I personally spoke with this patient via telephone on the day of the encounter, performed the conde portion(s) of the service and participated in the management and confirm the fellow's documentation. Physical examination was not performed and may limit some portions of the clinical encounter. Please note there may be an additional personal documentation from me. -------- Pulmonary Tele Visit Note Patient: Ana Maria Andrade Age: 57 y.o. : 1965 Account No.: [id number] Referring physician: Dr. 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 Patient was refer to us by Dr. Zaman (CT surgery) for biopsy evaluation. Patient is currently smoker, she reports no change in her breathing, no weight changes. History reviewed. No pertinent past medical history. Past Surgical History: Procedure Laterality Date HYSTERECTOMY LUNG LOBECTOMY Left 01/30/2018 Left upper Allergies: Patient has no known allergies. Prior to Admission medications Medication Sig Start Date End Date Taking? Authorizing Provider ALPRAZolam (Xanax) 0.5 mg tablet TAKE 1 TABLET BY MOUTH TWICE A DAY FOR 30 DAYS 09/30/23 Historical Provider, amLODIPine (Norvasc) 10 mg tablet Take 10 mg by mouth in the morning. 09/08/23 Historical Provider, MD Taylor Aerosphere 160-9-4.8 mcg/actuation HFA aerosol inhaler Inhale 2 puffs in the morning and at bedtime. 04/07/23 Historical Provider, losartan (Cozaar) 50 mg tablet Take 50 mg by mouth in the morning. 10/24/22 Historical Provider, metoprolol succinate XL (Toprol-XL) 100 mg 24 hr tablet 10/10/23 Historical Provider, minoxidil (Loniten) 2.5 mg tablet Take 2.5 mg by mouth in the morning. 06/11/23 Historical Provider, PARoxetine CR (Paxil-CR) 25 mg 24 hr tablet TAKE 1 TABLET BY MOUTH EVERY DAY IN THE MORNING FOR 30 DAYS 08/02/23 Historical Provider, traMADol (Ultram) 50 mg tablet TAKE 1 TABLET BY MOUTH THREE TIMES A DAY NEEDED FOR 7 DAYS 12/27/22 Historical Provider, Social history: reports that she has been smoking cigarettes. She has been smoking an average of 1 pack per day. She does not have any smokeless tobacco history on file. Alcohol use questions deferred to the physician. Drug use questions deferred to the physician. Family History Problem Relation Name Age of Onset Lung cancer Father Lung cancer Sister Review of Systems: Negative except as above Labs Results: No results found for: HGB , HCT , WBC , BUN , CREATININE , NA , K , BICARB , CO2 , PH , PHART , PHVEN , CNC7FYY , CAN0VPO , ADZ7ZKH , PO2POC , PO2ART , PO2VEN , VBW3ZXS , XTN7HYA Radiology: Assessment and Plan: # RUL lung nodule that are PET AVID # History of left upper lobe stage I large cell carcinoma status post lobectomy in 2018 # Current smoker Plan: - Will plan for Ion robotic TBX/TBFNA with EBUS, TBD - Patient denies being on blood thinner - Procedure explained to the patient in details - Will need CT ION at the day of the procedure for biopsy mapping. Total time spent in Medical Discussion including obtaining history from the patient, review of labs, tests with the patient, discussion of assessment and plan 30 minutes. The visit was initiated by the patient and conducted [id number] with use of audio-only real time telephone communication between patient and provider for a virtual visit. Verbal consent to provide and bill this service was obtained on: 10/19/23 No signature was obtained due to the COVID-19 pandemic. Anju Cavanaugh MD [facility] Pulmonary/Critical Care Fellow Normal [facility] Office Visiton 10-19-2023 Follow-up visit [id number] Marv Andrade lonny 1965 F Date Provider Department Center 10/19/2023 [facility] SANTANA [facility] ON[facility] D[facility] Family History Problem Relation Age of Onset Lung cancer Father Lung cancer Sister Family Status - Relation Status Age at Father Sister Level of Service:[address] [place] PHYS/QHP TELEPHONE EVALUATION 21-30 MIN () Reason for Visit and Comments: New Patient [632] - HAT SIZER referral by cardiovascular surgery- Dr Kowalski for lung biospy. PET 10/[address] chest 09/27 at [facility]. Films in epic and reports in Media. Normal [facility] ECG 12 lead ECGon 05-17-2023 ECG 12 lead ECG [facility] [address] [place] [id number] Electrocardiograph Report Signed Patient: Ana Maria Andrade MR#: [id number] 27 : 1965 Acct:[id number] Age/Sex: 57 / F ADM Date: 05/17/23 Loc: Room: Type: [facility] Attending Dr: Real Kowalski MD Ordering Provider: Real Kowalski MD Date of Service: 05/17/23/ ECG/ECG 12 lead ECG: r06.02 Copies to: Test Reason : Blood Pressure : / mmHG Vent. Rate : 060 BPM Atrial Rate : 060 BPM P-R Int : 140 ms QRS Dur : 080 ms QT Int : 430 ms P-R-T Axes : 031 037 058 degrees QTc Int : 430 ms Normal sinus rhythm Normal ECG When compared with ECG of 29-JAN-2018 08:32, No significant change was found Confirmed by NAHEED CEVALLOS DO ([id number]) on 05/17/2023 6:15:45 PM Referred By: Electronically Signed By:NAHEED CEVALLOS DO Transcribed By: MUS Signed By Naheed Cevallos DO 05/17 1815 Normal [facility] echo transthoracicon [facility] echo transthoracic [facility] Main [place] [address] [place] [address] Echocardiogram Signed Patient: Ana Maria Andrade MR#: [id number] 27 : 1965 Acct:[id number] Age/Sex: 57 / F ADM Date: 05/17/23 Loc: Room: Type[facility] Attending Dr: Real Kowalski MD Ordering Provider: Real Kowalski MD Date of Service: 05/17/23/ [facility] echo transthoracic: Solitary pulmonary nodule. SOB. Copies to: MD Sky Plaza MD, [facility] BSA: 1.7 m2 BP: 109/70 mmHg HR: 62 Reason For Study: Solitary pulmonary nodule. SOB. History: HTN. Smoker. COPD. Family history: Mother-Pacemaker. Interpretation Summary Mild concentric left ventricular hypertrophy. Ejection Fraction = 60-65%. There is no prior echocardiogram noted for this patient. Procedure/Quality: A two-dimensional transthoracic echocardiogram with color flow and Doppler was performed. The study was technically good in quality. There is no prior echocardiogram noted for this patient. Left Ventricle: Mild concentric left ventricular hypertrophy. Left ventricular systolic function is normal. Ejection Fraction = 60-65%. Left Atrium: The left atrium appears normal in size. The atrial septum appears normal. Right Atrium: The right atrium appears normal in size. Right Ventricle: The right ventricular size, thickness and function are normal. Aortic Valve: The aortic valve is normal in structure and function. Mitral Valve: The mitral valve is normal in structure and function. Tricuspid Valve: The tricuspid valve is normal in structure and function. Pulmonic Valve: The pulmonic valve is not well seen, but is grossly normal. Arteries: The aortic root is normal size. Pericardium/Pleura: No pericardial effusion seen. There is no pleural effusion. IVC/Hepatic Viens: The inferior vena cava is normal in size, with a normal collapsibility index. Miscellaneous: No thrombus, vegetation or mass is seen. Measurements with Normals IVSd: 1.2 cm (0.7-1.1 cm)LVIDd: 3.4 cm (3.7-5.4 cm) LVPWd: 1.2 cm (0.7-1.1 cm)LVIDs: 2.4 cm (2.3-3.6 cm) LA dimension: 3.5 cm (2.3-4.0 cm)Ao root diam: 2.9 cm(2.0-3.6 cm) asc Aorta Diam: 3.0 cm(2.1-3.4cm) Doppler with Normals LV V1 max: 91.3 cm/sec (0.7-1.7m/s)MV E max donta: 74.8 cm/sec(0.8-1.3m/s) MV A max donta: 64.1 cm/sec(0.0-0.0m/s) MV E/A: 1.2 (<1.5) MMode/2D Measurements Calculations TAPSE: 1.7 cm FS: 28.8 % Ao root area: LVOT diam: 2.0 cm RV S Donta: EDV(Teich): 6.5 cm2 LVOT area: 3.1 cm2 15.2 cm/sec 48.3 ml ESV(Teich): 21.0 ml EF(Teich): 56.6 % __ LVLd ap4: 7.2 cm SV(MOD-sp4): LAV(MOD-sp4): LA A2 area: 10.9 cm2 EDV(MOD-sp4): 34.3 ml 31.1 ml 53.5 ml LAV(MOD-sp2): LA A4 area: 13.7 cm2 LVLs ap4: 5.9 cm 19.9 ml LA length (vol): ESV(MOD-sp4): 4.8 cm 19.2 ml LA vol: 26.5 ml EF(MOD-sp4): 64.1 % LA vol index: 15.9 ml/m2 Doppler Measurements Calculations MV dec time: E/E' lat: 9.3 MV dec slope: Ao V2 max: 0.27 sec E/E' med: 8.0 144.5 cm/sec 277.8 cm/sec2 Ao max P.3 mmHg Ao mean P.7 mmHg Ao V2 mean: 100.7 cm/sec Ao V2 VTI: 25.0 cm ELIF(I,D): 2.3 cm2 ELIF(V,D): 1.9 cm2 __ LV V1 max PG: RAP systole: 3.3 mmHg 3.0 mmHg LV V1 mean P.8 mmHg LV V1 mean: 62.8 cm/sec LV V1 VTI: 19.1 cm Measurements from QLAB BSA (): 1.7 m2 CI (): ED Mass (): LAEF (): 24.0 % 4.2 l/min/m2 210.0 grams __ FEI (): LAVmax (): LAVmin (): 44.0 mlPat Height (): 58.0 ml 154.0 cm 35.0 ml/m2 __ Pat Weight (): 68.0 kg QLAB Heart Model EDV ()_phl: 225.0 ml EF ()_phl: 54.0 % ED Current ()_phl: 60.0 % ESV ()_phl: 104.0 ml HR ()_phl: 57.0 BPMES Current ()_phl: 30.0 % LV Length ED ()_phl: 98.0 mmSV ()_phl: 121.0 mlED Default ()_phl: 60.0 % LV Length ES ()_phl: 75.0 mm ES Default ()_phl: 30.0 % Transcribed By: ADELAIDA Performed At: 05/17/23 1032 Signed By: Sky Parekh MD, [facility] 05/17/23 1741 Normal [facility] Glucose Glucometer (BldC) [M ass/Vol]Ordered By: Real Kowalski on 05-17-2023 Glucose [Mass/Vol] 154 mg/dL [facility] Comment on above: Random Glucose Refer ence Range is dependent on time and content of last meal. Glucose of more than 200 mg/dL in a nonstressed, ambulatory subject supports the diagnosis of Diabetes Mellitus. Glucose Poct Glucometerson 1 Glucose [Mass/Vol] 154 mg/dL Normal [facility] Comment on above: Result Comment: Mcgrady om Glucose Reference Range is dependent on time and content of last meal. Glucose of more than 200 mg/dL in a nonstressed, ambulatory subject supports the diagnosis of Diabetes Mellitus. PERFORMED BY: [place] [address] PATHOLOGIST SALES SUPPORT TECHNICIAN YOLY LEE M.D. Performed By: #### G LULS #### Point of Care testing , PET tumor init tx strat sb-m ton 05-17-2023 PET tumor init tx strat sb-mt [facility] [place] [address] Nuclear Medicine Report Signed Patient: Ana Maria Andrade MR#: [id number] 27 : 1965 Acct:[id number] Age/Sex: 57 / F ADM Date: 05/17/23 Loc: Room: [facility] Attending Dr: Real Kowalski MD Copies to: MD Kartik Plaza Jr, DO Ordering Provider: Real Kowalski MD Date of Service: 05/17/23 PET/PET tumor init tx strat sb-mt: New lung nodule, history of lung cancer PET/CT FUSION IMAGING CLINICAL INFORMATION: Lung cancer COMPARISON : Prior PET/CT 12/27/2017. Outside CT chest 03/07/2023. TECHNIQUE: Noncontrasted CT scan from the base of the skull to the upper thigh followed by PET imaging. Multiplanar PET/CT fusion images. Blood Glucose : 154 mg/dL The F-18 FDG 12.78mCi. FINDINGS: Neck: No abnormal activity. Chest:Previously identified nodule involving the right lung apex demonstrates subthreshold FDG activity, SUV max 2.1. No abnormal activity is seen within the left lung, mediastinum or hilar regions. Abdomen/pelvis: No abnormal activity. Soft tissue/bones: No abnormal activity is seen. CT findings: Emphysematous changes. Postsurgical changes left lung. No pneumothorax. No pericardial or pleural effusions. A hypodense lesion is seen within the liver not FDG avid. This is new compared to the prior PET/CT. Partially calcified right adnexal lesion without abnormal FDG activity similar configuration to the prior PET/CT. PET/PET tumor init tx strat sb-mt IMPRESSION: 1. Previously identified nodule involving the right lung apex demonstrates subthreshold FDG activity. This finding appears more nodular on today's study when compared to the concurrent CT from 2018. Developing metastatic disease cannot BE excluded and CT follow-up is recommended. 2. A hypodense lesion is seen involving the liver which is not FDG avid. Finding is new compared to the 2018 study. A treated metastatic lesion cannot BE excluded and CT follow-up is suggested. 3. Partially calcified right adnexal lesion grossly similar to the 2018 study suggesting a benign process. Impression dictated by: Kartik Light Jr., DJingOJing05/17/2023 10:51 AM Dictation Location: [place] [address] Transcribed By: [facility] 05/17/23 1051 Dictated By: Kartik Light Jr, DO 05/17/23 1041 Signed By: 05/17/23 1051 [facility] Office Visit (Thoracic and E sophageal Surgery)on 04-04-2023 Follow-up visit Diagnoses/Problems Assessed History of hypertension (V12.59) (Z86.79) History of High triglycerides (272.1) (E78.1) History of anxiety (V11.8) (Z86.59) History of COPD, mild (496) (J44.9) History of Lung lobectomy History of Hysterectomy Family history of lung cancer (V16.1) (Z80.1) : Father, Sister History of eczema (V13.3) (Z87.2) Lung nodule (793.11) (R91.1) Orders Lung nodule CT Chest without Contrast; Status:Hold For - Scheduling,Exact Date,Retrospective Authorization; Requested for:Approx [id number]; Patient taking Metformin or Derivatives? : Unknown Radiologist to Determine Optimal Study : Y What are the patient's signs and symptoms? : 3 mos follow up surveilllance CT Provider Impressions Ms. Andrade is a pleasant 57 year old female, current smoker, who is s/p Lt upper lobectomy by Dr. Kowalski 01/30/2018 for a large cell carcinoma. She has been followed with surveillance CT scans by Dr. Solano in [place]. Has a slowly enlarging 7mm right apical nodule. I d/w patient and the options including PET (including discussion re: decreased sensitivity of PET given size of lesion), repeat CT in 3 months or attempted bx - surgical vs needle. For now will plan for repeat CT in 3 months given her preference. We discussed smoking cessation, she is in the pre-contemplative stage and is not quit ready to quit. Not ready to finalize a quit date yet. Chief Complaint New patient visit Adult Risk ScreeningThere are no spiritual/cultural practices/values/needs that are important to know Initial Fall Risk Screening: ANA MARIA has fallen in the last 6 months. She has fallen due to tripped at work. Her fall resulted in the following injury: bruised ribs. ANA MARIA does not have a fear of falling. She does not need assistance with sitting, standing or walking. Does not need assistance walking in her home. She does not need assistance in an unfamiliar setting. The patient is not using an assistive device. Pain Scale: On a scale of 0 to 10, the patient rates the pain at 0. Living Will. Living Will: No living will on file. Patient Declined. Healthcare POA: No healthcare proxy on file. Patient Declined. Declaration of Mental Health Treatment: No mental health treatment on file. Patient Declined. Tobacco Screening: ANA MARIA uses tobacco. Type(s) of Tobacco: cigarettes Do you feel UNSAFE? The patient feels safe in the home. Depression/Suicide Screening: During the past 2 weeks, the patient has not felt down, depressed or hopeless. During the past 2 weeks, the patient has not felt little interest or pleasure in doing things. She does not have a risk of suicide. She has not had thoughts of harming others. Single alcohol screening question: In the past year the patient has had 5 or more drinks (men) or 4 or more drinks (women)? 4 drinks a day vodka time(s). Single substance abuse screening question: In the past year the patient has used a recreational drug or used a prescription drug for non-medical reasons? 0 time(s). Procedure or Sedation Areas: Not Applicable Nutrition Screening: In the past month, there was not a day when I or anyone in my family went hungry because there was not enough food. Patient Education: The patient denies that they or the person with them has problems with hearing, speaking, seeing, moving around or learning The patient is comfortable filling out medical forms. Conde Learner(s) are identified by the patient as person(s) most likely to participate in providing care, such as managing medications or taking them to doctors? appointments. Primary Language for learning: Latvian. Food Insecurity: 1. Within the past 12 months, you worried that your food would run out before you got money to buy more: No 2. Within the past 12 months, the food you bought just didn't last and you didn't have money to get more: No History of Present Illness Ms. Andrade is a pleasant 57 year old female, current smoker, who is s/p Lt upper lobectomy by Dr. Kowalski 01/30/2018 for a large cell carcinoma. She did well after that surgery. Has been followed by Dr. Solano in [place] for her emphysema/this history. She has some mild dyspnea at baseline. On CT chest from February was noted to have slight increase in the size of a right apical nodule. She denies any other respiratory complaints. Has lost some weight recently 2/to having multiple teeth removed. Otherwise activity and energy level have been good. 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 Has attempted to quit with Chantix as well as NRT products without success. Review of Systems Constitutional: not feeling tired. Eyes: no eyesight problems. ENT: no hearing loss and no nosebleeds. Cardiovascular: no intermittent leg claudication and as noted in HPI. Respiratory: no chronic cough and no shortness of breath. Gastrointestinal: no change in bowel habits and no blood in stools. Genitourinary: no urinary frequency. (more content not included)... Normal [employer] Tobacco Screening.on 023 Fall risk assessment b) One or more falls in the last year [facility] [address] Work Phone: Tobacco use status [facility] a) Yes [facility] [address] Work Phone: Tobacco Screening. Yes [facility] [address] Work Phone: CBC AUTO DIFFon 07-06-2022 BASO # 0.1 103/ul Normal 0.0-0.1 [facility] Comment on above: Performed By: #### C BC #### [facility] [address] [place] [address] Dr. Shannon Aponte Basophils/100 WBC (Bld) 0.8 % Normal 0.2-2.0 [facility] Comment on above: Performed By: #### C BC #### [facility] [address] [place] [address] Dr. Shannon Aponte EO # 0.3 103/ul Normal 0.0-0.7 [facility] Comment on above: Performed By: #### C BC #### [facility] [address] [place] [address] Dr. Shannon Aponte Eosinophils/100 WBC (Bld) 3.8 % Normal 0.9-7.0 [facility] Comment on above: Performed By: #### C BC #### [facility] [address] [place] [address] Dr. Shannon Aponte Erythrocyte distribution width (RBC) [Ratio] 13.4 % Normal 11.0-15.0 [facility] Comment on above: Performed By: #### C BC #### [facility] [address] [place] [address] Dr. Shannon Aponte Hematocrit (Bld) [Volume fraction] 44.1 % Normal 36.0-48.0 [facility] Comment on above: Performed By: #### C BC #### [facility] [address] [place] [address] Dr. Shannon Aponte Hemoglobin (Bld) [Mass/Vol] 15.3 g/dL Normal 12.0-16.0 [facility] Comment on above: Performed By: #### C BC #### [facility] [address] [place] [address] [address] Shannon Aponte IG # 0.06 10e3/ul Critically high 0.00-0.03 [facility] Comment on above: Performed By: #### C BC #### [facility] [address] [place] [address] Dr. Shannon Aponte IG % 0.7 % Critically high 0.0-0.5 [place] [facility] Comment on above: Performed By: #### C BC #### [facility] [address] [place] [address] Dr. Shannon Aponte LYMPH # 2.4 103/ul Normal 1.2-3.8 [facility] Comment on above: Performed By: #### C BC #### [facility] [address] [place] [address] Dr. Shannon Aponte Lymphocytes/100 WBC (Bld) 26.2 % Normal 20.5-60.0 [facility] Comment on above: Performed By: #### C BC #### [facility] [address] [place] [address] Dr. Shannon Aponte MANUAL DIFF REQ NO Normal [facility] Comment on above: Performed By: #### C BC #### [facility] [address] [place] [address] Dr. Shannon Aponte MCH (RBC) [Entitic mass] 32.0 pg Normal 26.7-34.0 [facility] Comment on above: Performed By: #### C BC #### [facility] [address] [place] [address] Dr. Shannon Aponte MCHC (RBC) [Mass/Vol] 34.7 g/dL Normal 29.9-35.2 [facility] Comment on above: Performed By: #### C BC #### [facility] [address] [address] [address] Shannon Aponte MCV (RBC) [Entitic vol] 92.3 fL Normal 81.0-99.0 [facility] Comment on above: Performed By: #### C BC #### [facility] [address] [address] [address] Shannon Aponte MONO # 0.8 103/ul Normal 0.3-0.8 [facility] Comment on above: Performed By: #### C BC #### [facility] [address] [address] [address] Shannon Aponte Monocytes/100 WBC (Bld) 9.0 % Normal 1.7-12.0 [facility] Comment on above: Performed By: #### C BC #### [facility] [address] [place] [address] Dr. Shannon Aponte NEUT # 5.4 103/ul Normal 1.4-6.5 [facility] Comment on above: Performed By: #### C BC #### [facility] [address] [place] [address] Dr. Shannon Aponte Neutrophils/100 WBC (Bld) 59.5 % Normal 43.0-75.0 [facility] Comment on above: Performed By: #### C BC #### [facility] [address] [place] [address] Dr. Shannon Aponte Platelet mean volume (Bld) [Entitic vol] 9.8 fL Normal 9.5-13.[address] [facility] Comment on above: Performed By: #### C BC #### [facility] [address] [place] [address] Dr. Shannon Aponte PLT 287 103/ul Normal 150-[address] [facility] Comment on above: Performed By: #### C BC #### [facility] [address] [place] [address] Dr. Shannon Aponte RBC 4.78 106/ul Normal 4.20-5.[address] [facility] Comment on above: Performed By: #### C BC #### [facility] [address] [address] [address] Shannon Aponte WBC 9.0 103/ul Normal 4.0-11.0 [facility] Comment on above: Performed By: #### C BC #### [facility] [address] [address] [address] Shannon Aponte LIPID PROFILEon 07-06-2022 CHOL-HDL RATIO NORM SEE BELOW Normal [facility] Comment on above: Result Comment: 3.3 - 4.4 LOW RISK 4.4 - 7.1 AVERAGE RISK 7.1 - 11.0 MODERATE RISK >11.0 HIGH RISK Performed By: #### L IPID, CMP #### [facility] [address] [place] [address] Dr. Shannon Aponte Cholesterol [Mass/Vol] 218 mg/dL Critically high <=200 [facility] Comment on above: Performed By: #### L IPID, CMP #### [facility] [address] [place] [address] Dr. Shannon Aponte Cholesterol in HDL [Mass/Vol] 37 mg/dL Critically low 40-60 [facility] Comment on above: Performed By: #### L IPID, CMP #### [facility] [address] [place] [address] Dr. Shannon Aponte Cholesterol in LDL [Mass/Vol] 119.4 mg/dL Normal [facility] Comment on above: Performed By: #### L IPID, CMP #### [facility] [address] [address] [address] Shannon Aponte Cholesterol.total/C holesterol in HDL [Mass ratio] 5.9 {ratio} Normal [facility] Comment on above: Performed By: #### L IPID, CMP #### [facility] [address] [place] [address] Dr. Shannon Aponte HDL NORMAL > or = 60 mg/dl - LO W CARDIOVASCULAR RISK <40 mg/dl - HIGH CARDIOVASCULAR RISK Normal [facility] Comment on above: Performed By: #### L IPID, CMP #### [facility] [address] [place] [address] Dr. Shannon Aponte LDL CALC NORMAL SEE BELOW Normal [facility] Comment on above: Result Comment: <100 mg/dl OPTIMAL 100 - 129 mg/dl NEAR OR ABOVE OPTIMAL 130 - 159 mg/dl BORDERLINE HIGH 160 - 189 mg/dl HIGH >190 mg/dl VERY HIGH Performed By: #### L IPID, CMP #### [facility] [address] [address] [address] Shannon Aponte Triglyceride [Mass/Vol] 308 mg/dL Critically high <=150 [facility] Comment on above: Performed By: #### L IPID, CMP #### [facility] [address] [address] [address] Shannon Aponte VLDL CALC 61.6 mg/dL Normal [facility] Comment on above: Performed By: #### L IPID, CMP #### [facility] [address] [address] [address] Shannon Aponte PROF 14(COMP METB)on 022 Albumin [Mass/Vol] 3.7 g/dL Normal 3.4-5.0 [facility] Comment on above: Performed By: #### L IPID, CMP #### [facility] [address] [address] [address] Shannon Aponte Albumin/Globulin [Mass ratio] 1.1 {ratio} Normal [facility] Comment on above: Performed By: #### L IPID, CMP #### [facility] [address] [address] [address] Shannon Aponte ALP [Catalytic activity/Vol] 58 U/L Normal 46-[address] [facility] Comment on above: Performed By: #### L IPID, CMP #### [facility] [address] [address] [address] Shannon Aponte ALT [Catalytic activity/Vol] 34 U/L Normal 14-59 [facility] Comment on above: Performed By: #### L IPID, CMP #### [facility] [address] [address] [address] Shannon Aponte Anion gap [Moles/Vol] 12.0 mmol/L Normal [facility] Comment on above: Performed By: #### L IPID, CMP #### [facility] [address] [address] [address] Shannon Aponte AST [Catalytic activity/Vol] 35 U/L Normal 15-37 [facility] Comment on above: Performed By: #### L IPID, CMP #### [facility] [address] [address] [address] Shannon Aponte Bilirubin [Mass/Vol] 0.7 mg/dL Normal 0.2-1.0 [facility] Comment on above: Performed By: #### L IPID, CMP #### [facility] [address] [place] [address] Dr. Shannon Aponte Calcium [Mass/Vol] 8.9 mg/dL Normal 8.5-10.1 [facility] Comment on above: Performed By: #### L IPID, CMP #### [facility] [address] [place] [address] Dr. Shannon Aponte Chloride [Moles/Vol] 103 mmol/L Normal 98-107 [facility] Comment on above: Performed By: #### L IPID, CMP #### [facility] [address] [place] [address] Dr. Shannon Aponte CO2 [Moles/Vol] 31.3 mmol/L Normal 21.0-32.0 [facility] Comment on above: Performed By: #### L IPID, CMP #### [facility] [address] [place] [address] Dr. Shannon Aponte Creatinine [Mass/Vol] 0.68 mg/dL Normal 0.55-1.02 [facility] Comment on above: Performed By: #### L IPID, CMP #### [facility] [address] [place] [address] Dr. Shannon Aponte EGFR-AF COMORAN >60 Normal >=60 [facility] Comment on above: Performed By: #### L IPID, CMP #### [facility] [address] [place] [address] Dr. Shannon Aponte EGFR-NON AF COMORAN >60 Normal >=60 [facility] Comment on above: Performed By: #### L IPID, CMP #### [facility] [address] [address] [address] Shannon Aponte Globulin (S) [Mass/Vol] 3.5 g/dL Normal [facility] Comment on above: Performed By: #### L IPID, CMP #### [facility] [address] [address] [address] Shannon Aponte Glucose [Mass/Vol] 134 mg/dL Critically high 74-106 [facility] Comment on above: Performed By: #### L IPID, CMP #### [facility] [address] [address] [address] Shannon Aponte Potassium [Moles/Vol] 4.3 mmol/L Normal 3.5-5.1 [facility] Comment on above: Performed By: #### L IPID, CMP #### [facility] [address] [place] [address] Dr. Shannon Aponte Protein [Mass/Vol] 7.2 g/dL Normal 6.4-8.2 [facility] Comment on above: Performed By: #### L IPID, CMP #### [facility] [address] [place] [address] Dr. Shannon Aponte Sodium [Moles/Vol] 142 mmol/L Normal 136-145 [facility] Comment on above: Performed By: #### L IPID, CMP #### [facility] [address] [place] [address] Dr. Shannon Aponte Urea nitrogen [Mass/Vol] 11.0 mg/dL Normal 7.0-18.0 [facility] Comment on above: Performed By: #### L IPID, CMP #### [facility] [address] [address] [address] Shannon Aponte Urea nitrogen/Creatinine [Mass ratio] 16.2 mg/mg Normal [facility] Comment on above: Performed By: #### L IPID, CMP #### [facility] [address] [place] [address] CHEST W CONon 02-25-2022 CT CHEST W CON EXAMINATION: CT CHES T W CON HISTORY: Solitary nodule of lung ; left lobectomy 3 years ago COMPARISON: CT chest 08/19/2021 CT abdomen and pelvis 12/16/2017 TECHNIQUE: Multi-planar CT images were created with IV contrast. Axial, Coronal, and Sagittal images. Dose reduction techniques were achieved by using automated exposure control and/or adjustment of mA and/or kV according to patient size and/or use of iterative reconstruction technique. FINDINGS: LUNGS: Stable 6 mm nodule within right lung apex. Stable mild scarring adjacent the lower left lateral chest wall from prior surgery. Mild emphysematous changes. Prior left lung lobectomy. PLEURA: No mass, effusion, or pneumothorax. VASCULATURE: No abnormality. ELVER: Multiple surgical clips within left hilum. MEDIASTINUM: No mass or adenopathy. CARDIAC: No enlargement, pericardial thickening, or significant calcification. AORTA: No aneurysm or dissection. CHEST WALL: No mass or axillary adenopathy. BONES: Old left rib fracture/resection from prior surgery. LIMITED ABDOMEN: Stable round early enhancing 3.1 cm area within anterior right hepatic lobe favoring a flash-fill hemangioma. Limited images of the upper abdomen. OTHER: Negative. IMPRESSION: 1. Stable 6 mm nodule within right lung apex; nonspecific. Follow-up imaging in one year is recommended. 2. Stable postsurgical scarring within lateral left lung base. 3. No new or overtly suspicious findings. Electronically authenticated by: HAKEEM ALBERTS Date: 2022-02-25 15:55 Normal [facility] XR CSPINE 2_3 VIEWSon 2021 XR CSPINE 2_3 VIEWS EXAMINATION: XR CSPI NE 2_3 VIEWS HISTORY: Cervical radiculopathy COMPARISON: No relevant comparison available. FINDINGS: BONES: Normal alignment of the cervical vertebral bodies with no acute fracture. 2 mm retrolisthesis C5 on C6. Minimal degenerative spondylosis. Mild facet osteoarthropathy. DISC SPACES: Mild narrowing C5-C6 PARASPINOUS: Negative. No paraspinous abnormality is seen. OTHER: Negative. IMPRESSION: Degenerative changes most significant C5-C6 Electronically authenticated by: VESTA KNOWLES Date: 2021-08-24 12:03 Normal [facility] CT CHEST WO CONon 08-19-2021 CT CHEST WO CON EXAMINATION: CT CHES T WO CON HISTORY: Solitary nodule of lung COMPARISON: CT chest 02/13/2021, 06/19/2019 TECHNIQUE: Axial, Coronal, and Sagittal images were created without the administration of IV contrast material. Dose reduction techniques were achieved by using automated exposure control and/or adjustment of mA and/or kV according to patient size and/or use of iterative reconstruction technique. FINDINGS: LUNGS: Stable 6 mm nodule within right lung apex. Stable scarring along lateral left chest wall inferior to the level of hilum suspected to be sequela of prior surgery. Prior left lower lobe lobectomy. Mild emphysematous changes. PLEURA: No mass, effusion, or pneumothorax. VASCULATURE: No abnormality. ELVER: No mass or adenopathy. MEDIASTINUM: No mass or adenopathy. CARDIAC: No enlargement or pericardial thickening. AORTA: No aneurysm or dissection. CHEST WALL: No mass or axillary adenopathy. BONES: Prior resection of a short segment of the posterior lateral left sixth rib. Old healed fracture of left seventh rib. LIMITED ABDOMEN: No suspicious findings. Limited images of the upper abdomen. OTHER: Negative. IMPRESSION: 1. Slightly increasing size and volume/density of a 6 mm nodule within the right lung apex; nonspecific. Due to its small size, continued follow-up is recommended with CT imaging of the chest in 6 months. 2. Stable surgical changes from left lower lobe lobectomy. 3. No lymphadenopathy. Electronically authenticated by: HAKEEM ALBERTS Date: 2021-08-19 10:51 Normal [facility] Vital Signs Date Time Vital Sign Value Performing Clinician Facility 02-29-2024 11:16040 Body height 152.4 cm [facility] 02-29-2024 11:16040 Body mass index (BMI) [Ratio] 29.9 kg/m2 [facility] 02-29-2024 11:16040 Body weight 69.39 kg [facility] 02-29-2024 11:16-0400 Diastolic blood pressure 73 mm[Hg] [facility] 02-29-2024 11:16040 Heart rate 88 /min [facility] 02-29-2024 11:160400 Systolic blood pressure 130 mm[Hg] [facility] 11-13-2023 13:310400 Body height 152.4 cm [facility] 11-13-2023 13:31-0400 Body mass index (BMI) [Ratio] 29.9 kg/m2 [facility] 11-13-2023 13:31-0400 Body weight 69.51 kg [facility] 11-13-2023 13:31-0400 Diastolic blood pressure 79 mm[Hg] [facility] 11-13-2023 13:31-0400 Heart rate 78 /min [facility] 11-13-2023 13:31-0400 Systolic blood pressure 127 mm[Hg] [facility] 06-08-2023 10:15-0500 Body height 152.4 cm Sharda Edwards Other [facility] Other 06-08-2023 10:15-0500 Body mass index (BMI) [Ratio] 29.49 kg/m2 Sharda Edwards Other [employer] Other 06-08-2023 10:15-0500 Body weight 68.49 kg Sharda Edwards Other [employer] Other 06-08-2023 10:15-0500 Diastolic blood pressure 90 mm[Hg] Sharda Edwards Other [employer] Other 06-08-2023 10:15-0500 Systolic blood pressure 180 mm[Hg] Sharda Edwards Other [employer] Other 04-04-2023 13:37-0400 Body height 152.4 cm Sharda Edwards Work Phone: [facility] [address] [facility] Work Phone: 04-04-2023 13:37-0400 Body mass index (BMI) [Ratio] 28.9 kg/m2 Sharda Edwards Work Phone: YK[facility]Sujcwfsppzvl[facility] [address] Work Phone: 04-04-2023 13:37-0400 Body surface area Derived from formula 1.64 m2 Sharda Edwards Work Phone: IY-Dlwnbzkrtlki-Sicf rin [facility] [address] [facility] Work Phone: 04-04-2023 13:37-0400 Body temperature 97.6 [degF] Sharda Edwards Work Phone: DF-Miyurngxuonv-Mmyt rin [facility] [address] [facility] Work Phone: 04-04-2023 13:37-0400 Body weight 67.13 kg Sharda Edwards Work Phone: PJ-Vmffwipetjjm-Ddnw rin [facility] [address] [facility] Work Phone: 04-04-2023 13:37-0400 Diastolic blood pressure 89 mm[Hg] Sharda Edwards Work Phone: BI-Hpnajlpbxqzz-Djnr rin [facility] [address] [facility] Work Phone: 04-04-2023 13:37-0400 Heart rate 72 /min Sharda Edwards Work Phone: RI-Grlxowaimwlz-Wdap rin [facility] [address] [facility] Work Phone: 04-04-2023 13:37-0400 Respiratory rate 20 /min Sharda Edwards Work Phone: VB-Cfyafpzuxdfi-Dboc rin [facility] [address] [facility] Work Phone: 04-04-2023 13:37-0400 SaO2% (BldA) [Mass fraction] 93 % Sharda Edwards Work Phone: SS-Lcxxysbncolp-Gzso rin [facility] [address] [facility] Work Phone: 04-04-2023 13:37-0400 Systolic blood pressure 165 mm[Hg] Sharda Edwards Work Phone: QS-Fpxmtpymrkbp-Ralc rin [facility] [address] [facility] Work Phone: 04-04-2023 13:37-0400 0 1 Sharda Edwards Work Phone: [facility] [address] [facility] Work Phone: Comment on above: [employer] 12-27-2022 09:45-0400 Body height 152.4 cm Sharda Edwards Other [employer] Other 12-27-2022 09:45-0400 Body mass index (BMI) [Ratio] 29.68 kg/m2 Sharda Edwards Other [employer] Other 12-27-2022 09:45-0400 Body weight 68.95 kg Sharda Edwards Other [employer] Other 12-27-2022 09:45-0400 Diastolic blood pressure 80 mm[Hg] Sharda Edwards Other [employer] Other 12-27-2022 09:45-0400 Systolic blood pressure 120 mm[Hg] Sharda Edwards Other [employer] Other 11-10-2022 14:30-0400 Body height 152.4 cm Sharda Edwards Other [employer] Other 11-10-2022 14:30-0400 Body mass index (BMI) [Ratio] 29.68 kg/m2 Sharda Edwards Other [employer] Other 11-10-2022 14:30-0400 Body weight 68.95 kg Sharda Edwards Other [employer] Other 11-10-2022 14:30-0400 Diastolic blood pressure 88 mm[Hg] Sharda Edwards Other [employer] Other 11-10-2022 14:30-0400 SaO2% (BldA) [Mass fraction] 97 % Sharda Edwards Other [employer] Other 11-10-2022 14:30-0400 Systolic blood pressure 134 mm[Hg] Sharda Edwards Other [employer] Other 08-12-2022 12:00-0500 Body height 154.94 cm Sharda Edwards Other [employer] Other 08-12-2022 12:00-0500 Body mass index (BMI) [Ratio] 31.17 kg/m2 Sharda Edwards Other [employer] Other 08-12-2022 12:00-0500 Body weight 74.84 kg Sharda Edwards Other [employer] Other 08-12-2022 12:00-0500 Diastolic blood pressure 92 mm[Hg] Sharda Edwards Other [employer] Other 08-12-2022 12:00-0500 SaO2% (BldA) [Mass fraction] 97 % Sharda Edwards Other [employer] Other 08-12-2022 12:00-0500 Systolic blood pressure 162 mm[Hg] Sharda Edwards Other [employer] Other Encounters Encounter Date Encounter Type Care Provider Facility Start: 06-05-2024 End: 06-05-2024 ambulatory [facility] Start: 05-17-2024 End: 05-17-2024 ambulatory [facility] Start: 02-29-2024 End: 02-29-[address] [facility] Work Phone: Start: 02-29-2024 End: 02-29-2024 Patient encounter procedure [facility] Work Phone: Start: 02-16-2024 End: 02-16-2024 ambulatory KELTON GRACIA [facility] Start: 02-16-2024 End: 02-16-2024 ambulatory KELTON [facility] Start: 02-15-2024 End: 02-15-2024 ambulatory [facility] Start: 02-13-2024 End: 02-13-[facility]24 [facility] Start: 02-12-2024 End: 02-12-2024 ambulatory [facility] Start: 02-06-2024 End: 02-06-2024 ambulatory [facility] Start: 01-22-2024 End: 02-18-2024 ambulatory [facility] Start: 01-18-2024 End: 01-18-2024 [facility] Start: 01-04-2024 End: 01-04-2024 ambulatory [facility] Start: 01-01-2024 End: 01-01-2024 ambulatory [facility] Start: 11-13-2023 End: 11-13-[address] [facility] Work Phone: Start: 11-13-2023 End: 11-13-2023 Patient encounter procedure [facility] Work Phone: Start: 11-09-2023 Non-patient / Non-visit [facility] Work Phone: Start: 10-27-2023 End: 10-27-2023 ambulatory [facility] Start: 10-27-2023 End: 10-27-2023 ambulatory [facility] Start: 10-19-2023 ambulatory MEL[facility] Start: 10-17-2023 End: 10-17-[address] [facility] Start: 09-19-2023 End: 09-19-[address] [facility] Start: 08-22-2023 [facility] encounter [facility] Start: 08-17-2023 End: 08-17-2023 ambulatory Sharda Edwards Other [employer] Other Start: 08-17-2023 Office outpatient visit 15 minutes Sharda Edwards [facility] Start: 08-02-2023 End: 08-02-2023 ambulatory Sharda Edwards Other [employer] Other Start: 08-02-2023 Encounter by compute r Dragon[employer] Sharda Edwards [facility] Start: 07-13-2023 End: 07-13-2023 ambulatory Sharda Edwards Other [employer] Other Start: 07-13-2023 Telephone encounter Sharda Edwards [facility] Start: 06-28-2023 End: 06-28-2023 ambulatory [facility] Start: 06-15-2023 End: 06-15-2023 ambulatory Sharda Grace Other [employer] Other Start: 06-15-2023 Encounter by compute r link Sharda Edwards [facility] Start: 06-12-2023 End: 06-12-2023 ambulatory Sharda Edwards Other [employer] Other Start: 06-12-2023 Encounter by compute r link Sharda Edwards [facility] Start: 06-12-2023 Telephone encounter Sharda Edwards [facility] Start: 06-08-2023 End: 06-08-2023 ambulatory Sharda Edwards Other [employer] Other Start: 06-08-2023 Office outpatient visit 15 minutes Sharda Edwards [facility] Start: 06-07-2023 End: 06-07-2023 ambulatory Sharda Edwards Other [employer] Other Start: 06-07-2023 Telephone encounter Sharda Edwards [facility] Start: 05-17-2023 End: 05-17-2023 ambulatory Real Kowalski Facility:[facility] Start: 05-17-2023 End: 05-17-2023 ambulatory MD Sharda Edwards Work Phone: [facility] Work Phone: Start: 05-17-2023 End: 05-17-2023 Patient encounter procedure MD Sharda Edwards Work Phone: [facility] Work Phone: Start: 04-04-2023 Office outpatient ne w 60 minutes Sharda Edwards Work Phone: [facility] [address] Work Phone: Start: 04-04-[address] Sharda Edwards Facility:[id number] Start: 12-27-2022 End: 12-27-2022 ambulatory Sharda Edwards Other [employer] Other Start: 12-27-2022 Office outpatient visit 15 minutes Sharda Edwards [facility] Start: 11-10-2022 End: 11-10-2022 ambulatory Sharda Edwards Other [employer] Other Start: 11-10-2022 Encounter for genera l adult medical examination without abnormal findings Sharda Edwards [facility] Start: 11-10-2022 Periodic preventive med est patient 40-64yrs Sharda Edwards [facility] Start: 08-12-2022 End: 08-12-2022 ambulatory Sharda Edwards Other [employer] Other Start: 08-12-2022 Office outpatient visit 15 minutes Sharda Edwards [facility] Start: 07-06-2022 End: 07-07-[address] SHARDA EDWARDS Facility:[facility] Start: 03-16-2022 ambulatory DARRONBRAD EDMOND Facility:[facility] Start: 02-25-2022 End: 02-26-2022 ambulatory DARRON RUSS Facility:[facility] Start: 08-24-2021 End: 08-25-[address] SHARDA EDWARDS Facility:[facility] Start: 08-19-2021 End: 08-20-[address] Hakeem Alberts Facility:[facility] Procedures Date Procedure Procedure Detail Performing Clinician Start: 05-17-2023 Positron emission tomography with computed tomography MD Sharda Edwards Work Phone: Hysterectomy Sharda Edwards Work Phone: Lobectomy of lung Sharda espinoza Work Phone: Plan of Treatment Date Care Activity Detail Author Start: 06-27-2023 VIRCAITLIN, Provider : Lucia Marcos, Status: Pen, Time: 1:15 PM MICHAEL, Provider: Lucia Marcos, Status: Pen, Time: 1:15 PM [id number] [address] [facility] Work Phone: Immunizations Immunization Date Immunization Notes Care Provider Fa leif 11-24-2020 COVID-19 Vaccine Pfi zer - Documentation Purposes Only Sharda Edwards Other [facility] 11-03-2020 COVID-19 Vaccine Pfi zer - Documentation Purposes Only Sharda Edwards Other [facility] 06-30-2020 pneumococcal polysaccharide vaccine, 23 valent Sharda Edwards Other [facility] 05-03-2018 pneumococcal conjuga te vaccine, 13 valent Sharda Edwards Other [facility] Payers Date Payer Category Payer Unknown [id number] 1965 Unknown [id number] 1965 Unknown [id number] 1966 Unknown [id number] 1966 Unknown [id number] 1965 Unknown [id number] 1965 Unknown [id number] 1958 Self-pay 1958 Unknown [id number] Private Health Insurance [employer] [id number] Unknown [place] BC/BS [id number] Unknown ANTHEM Unknown [id number] Social History Date Type Detail Facility Sex Assigned At Bus[employer] Other Start: 1965 Sex Assigned At Female F [facility] Start: 01-29-2019 Tobacco smoking stat [facility] Ex-smoker (finding) [facility] Start: 08-22-2023 Tobacco smoking stat [facility] Smoker (finding) [facility] Medical Equipment Procedure Code Equipment Code Equipment Origin al Text Equipment Identifier Dates Thoracotomy BIOGLUE 2ML FDA Start: 01-30-2018 Thoracotomy BIOGLUE 2ML FDA Start: 01-30-2018 Thoracotomy BIOGLUE 2ML FDA Start: 01-30-2018 Thoracotomy BIOGLUE 2ML FDA Start: 01-30-2018 Clinical Notes 01-30-2018 to 06-05-2024 Note Date & Type Note Facility 06-05-2024 Note [facility] Department of Radiation Oncology [address] [place] [address] RADIATION ONCOLOGY FOLLOW UP NOTE Date of Service: 06/05/24 Patient Name: Ana Maria Andrade Patient : 1965 Diagnosis: 58 y.o. 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 Chief Complaint: What did the scan show? Interval Hx: Patient returns in an initial post-radiation visit and to review recent CT chest findings. Overall, she feels well. Denies new symptoms. Continues to smoke 0.5 ppd, but has cut down some. She's grieving her who suddenly passed in early summer 2023. She has stable exertional dyspnea, uses an inhaler as needed, and sees her clinical rn Dr. Solano at least once per year. Denies CP, worsening SoB, cough, hemoptysis, rib cage pain, etc. Original Consultation History of Present Illness: Patient presents in initial Radiation Oncology consultation as per the request of Dr. Kowalski of Thoracic Surgery. We have been asked to evaluate the patient for radiotherapy options for recently diagnosed poorly differentiated adenocarcinoma of RUL. I first heard about the patient from Dr. Kowalski more than a month ago, and was supposed to see her earlier, however, patient had a personal tragedy ( suddenly ), and she has been grieving. She is feeling a bit better with the passage of time, with the help of her supportive friends and family, as well as sessions with a grief counselor. Prior to her loss, she had cut down on smoking to <0.5 ppd, but since then has reverted to 1 ppd. She has exertional dyspnea but it does not stop her from working or being active; for example, she gets short of breath if she carries a laundry basket full of laundry up the stairs. She denies cough, hemoptysis, chest pain, poor appetite (except for a couple of weeks after spouse's sudden passing), weight loss, bony pain, neurologic symptoms. I reviewed the patient's oncologic, medical, surgical, social, and family history, as well as allergies/medications as per the medical record. Radiation Treatments Historical Plans RUL DIB Most recent treatment: Dose planned: 1,250 cGy (fraction 4 on 02/16/2024) Total: Dose planned: 5,000 cGy (4 fractions) Elapsed Days: 4 Reference Points RUL mass Most recent treatment: Dose given: 1,250 cGy (on 02/16/2024) Total: Dose given: 5,000 cGy Elapsed Days: 4 SocHx: [place]. 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 Son lives in [place]. Social History Tobacco Use Smoking status: Every Day Packs/day: .5 Types: Cigarettes Smokeless tobacco: Never Tobacco comments: Smoked 1 ppd x 42 years, now 0.5 ppd and started using patch today. Substance Use Topics Alcohol use: Yes Alcohol/week: 2.0 standard drinks of alcohol Types: 2 Shots of liquor per week Comment: daily Drug use: Not Currently Types: Marijuana FamHx: Family History Problem Relation Lung cancer Father Lung cancer Sister Review of Systems: I reviewed the Review of Systems with the patient. Clinically pertinent ones noted in the HPI. All others have been reviewed and are negative. Physical Exam: BP 130/85 (BP Location: Left arm, Patient Position: Sitting, BP Cuff Size: Adult) Pulse 79 Temp 36.8 ???C (98.2 ???F) (Oral) Ht 1.549 m (5' 1 ) Wt 69.7 kg (153 lb 9.6 oz) BMI 29.02 kg/m??? GENERAL: ECOG 1-2, well-appearing, in no apparent distress, alert and fully oriented, answers questions appropriately, accompanied by her cousin. HEENT: Normocephalic, atraumatic, PER, EOMI, mucous membranes moist, no suspicious asymmetry or abnormal mass lesions. NECK: No cervical or supraclavicular lymphadenopathy. LUNGS: Clear to auscultation bilaterally. HEART: Normal rate, regular rhythm. Normal S1/S2, mild/low grade murmur best appreciated in R 2nd intercostal space. ABD: No visceromegaly or masses. EXTREMITIES: Normal range of motion, no cyanosis/clubbing/edema. LYMPH: No appreciable adenopathy. 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 PSYCH: Appropriate affect for the clinical situation. Insight and judgment not impaired. LABS: No recent studies. RADS: === 05/17/24 === CT CHEST WO IV CONTRAST personally reviewed: Impression: [There is been no definite change since 10/27/2023. The spiculated right upper lobe opacity, the 2-3 mm more peripheral right upper lobe opacity, and the postsurgical changes within the chest are stable. There is no new pulmonary parenchymal opacity or pleural effusion.] === 01/04/24 === PET/CT BONE SKULL BASE TO MID THIGH personally (more content not included)... [facility] 06-05-2024 Note WEIGHT CALCULATOR NOTE: Ana Maria is here for F/U with cousin. Pt completed irradiation to RUL 10/25 fx 01/2024. Pt denies c/o pain. Pt reports BRYANT since left lobectomy 2016. Respirations are unlabored, O2 sat 96% RA. Pt reports dry cough. PHQ completed. Pt experienced of in 11/2023 Pt states she continues to receive counseling and support from family/friends for grief. Pt will have repeat CT Chest late Jul 2024 and Tele visit with Dr. Luo. Pt requests to have scan done in [facility] 02-15-2024 Note -RUL [facility] 09/24 - No N,V,D - good eating habits - no pain [place], A [facility] 02-15-2024 Note [facility] t [facility] Department of Radiation Oncology [address] [place] [address] Date of Service: 02/15/24 Patient Name: Ana Maria Andrade Patient : 1965 Radiation Oncology ON-TREATMENT VISIT NOTE Diagnosis: 58 y.o. 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 Dose Accrued: Radiation Treatments Active Reference Points RUL mass Most recent treatment: Dose given: 1,250 cGy (on 02/16/2024) Total: Dose given: 5,000 cGy Elapsed Days: 4 Subjective: Patient is doing well, tolerated daily treatment set-up and delivery without issues. No difficulty with breath hold technique. Energy level is slightly decreased, but daily routine is largely unchanged. Patient denies worsening SoB, CP, rib cage pain, cough, or other symptoms. Objective: Visit Vitals BP (!) 151/97 Pulse 76 Temp 36.8 ???C (98.2 ???F) (Oral) Resp 18 On exam, ECOG 2, well appearing, in NAD, sitting comfortably in a chair, grossly stable exam with no signs of RT induced toxicity. Plan: RTC in 3 months with repeat imaging. She will follow up with her clinical rn and Dr. Kowalski in the interim. Patient's questions were answered to satisfaction; patient verbalized a good understanding to everything. She knows to call with any questions or concerns. Kelton Gracia MD [facility] 01-18-2024 Note Accompanied by Virgie arreaga. States here to discuss treatment options for newly diagnosed lung cancer. has history of lung cancer in left lung, treated with lobectomy [place] [address]owalski at [facility]. Denies any chemo or radiation at that time. new cancer in right lung discovered on surveillance CT scan in September/October 2023. father and sister 2 months apart from lung cancer. unexpectedly in November 2023. going to grief counseling with Hospice and is seeing grief counselor 1 on which she states is helping her process her grief. has good support group of friends. son lives in [place] and has daughter in [place]. has some discomfort across bra line posteriorly - grades as 1/10. takes Tylenol if needed with relief. dyspnea is unchanged since lobectomy in 2018. Denies cough. Denies hemoptysis. appetite is starting to come back. Denies weight loss prior to 's . Denies issues with elimination. Denies hematuria or hematochezia. was working on smoking cessation, and has resumed the patch today in trying to quit. 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 Denies prior chemo or radiation. Denies implantable devices. Denies history of connective tissue disease. [facility] 01-18-2024 Note [facility] Department of Radiation Oncology [address] [place] [address] RADIATION ONCOLOGY FOLLOW UP NOTE Date of Service: 01/18/24 Patient Name: Ana Maria Andrade Patient : 1965 Diagnosis: 58 y.o. 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 Chief Complaint: What did the scan show? Interval Hx: Patient returns to review PET Scan results. No interval findings, patient reassured. No new symptoms; please refer to the consultation for add'l information. Original Consultation History of Present Illness: Patient presents in initial Radiation Oncology consultation as per the request of Dr. Kowalski of Thoracic Surgery. We have been asked to evaluate the patient for radiotherapy options for recently diagnosed poorly differentiated adenocarcinoma of RUL. I first heard about the patient from Dr. Kowalski more than a month ago, and was supposed to see her earlier, however, patient had a personal tragedy ( suddenly ), and she has been grieving. She is feeling a bit better with the passage of time, with the help of her supportive friends and family, as well as sessions with a grief counselor. Prior to her loss, she had cut down on smoking to <0.5 ppd, but since then has reverted to 1 ppd. She has exertional dyspnea but it does not stop her from working or being active; for example, she gets short of breath if she carries a laundry basket full of laundry up the stairs. She denies cough, hemoptysis, chest pain, poor appetite (except for a couple of weeks after spouse's sudden passing), weight loss, bony pain, neurologic symptoms. I reviewed the patient's oncologic, medical, surgical, social, and family history, as well as allergies/medications as per the medical record. SocHx: [place] last [place]. 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 Son lives in [place]. Social History Tobacco Use Smoking status: Every Day Packs/day: .5 Types: Cigarettes Smokeless tobacco: Never Tobacco comments: Smoked 1 ppd x 42 years, now 0.5 ppd and started using patch today. Substance Use Topics Alcohol use: Yes Alcohol/week: 2.0 standard drinks of alcohol Types: 2 Shots of liquor per week Comment: daily Drug use: Not Currently Types: Marijuana FamHx: Family History Problem Relation Lung cancer Father Lung cancer Sister Review of Systems: I reviewed the Review of Systems with the patient. Clinically pertinent ones noted in the HPI. All others have been reviewed and are negative. Physical Exam: BP 142/86 Pulse 71 Resp 16 GENERAL: ECOG 1-2, well-appearing, in no apparent distress, alert and fully oriented, answers questions appropriately, accompanied by her cousin. HEENT: Normocephalic, atraumatic, PER, EOMI, mucous membranes moist, no suspicious asymmetry or abnormal mass lesions. NECK: No cervical or supraclavicular lymphadenopathy. LUNGS: Clear to auscultation bilaterally. HEART: Normal rate, regular rhythm. Normal S1/S2, no murmurs/rubs/gallops appreciated. ABD: No visceromegaly or masses. EXTREMITIES: Normal range of motion, no cyanosis/clubbing/edema. LYMPH: No appreciable adenopathy. 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 PSYCH: Appropriate affect for the clinical situation. Insight and judgment not impaired. LABS: No recent studies. RADS: === 01/04/24 === PET/CT BONE SKULL BASE TO MID THIGH personally reviewed, and images reviewed with the patient. Small focus of increased uptake in the right upper lobe well correlated with the CT findings with maximum SUV of 2.3 consistent with biopsy-proven malignancy but no evidence of pathologic hilar or mediastinal adenopathy and no definite evidence of metastatic disease. Bilateral centrilobular upper lobe emphysematous changes and evidence of prior left lobectomy with diminished volume and postoperative changes in the left hemithorax. === 10/27/23 === CT CHEST WO IV CONTRAST - Impression - 1. There is a spiculated right upper lobe lung nodule, smaller more peripheral 3 mm nodular opacity in this region.. 2. Other chronic findings as described 10/16/[address] scan personally reviewed. PATH: 10/27/2023 Component Addendum A. Immunostains show tumor cells are positive for TTF-1 and negative for p63. Controls were adequate. 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 Addendum electronically signed by Yohana Cobb MD on 11/09/2023 at 1518 Final Diagnosis A. Lung, right upper lobe, Ion-guided fine needle aspiration: - Non-small cell carcinoma. - See comment. B. Lung, right upper lobe, bronchoalveolar (more content not included)... [facility] 01-18-2024 Note WEIGHT CALCULATOR: Here with cousinVirgie. Pt recently consulted and was to have PET which was done 01/07 as earlier pet was 2.5 months old. Pt here to review and decide treatments. Pt denies any pain, hemoptysis, or dyspnea. [facility] 01-18-2024 Note PHYSICIAN CLINICAL T REATMENT PLANNING NOTE Identification: Ana Maria Andrade is a 58 y.o. female with Stage IA NSCLC. Ana Maria has agreed to proceed with Radiation Therapy. The following represents the clinical treatment plan after I considered the patient???s clinical history, exam findings and relevant testing. Tests and supporting medical records were also reviewed to define the tumor location and extent of disease. Patient has not previously received radiation therapy. Patient does not have a pacemaker. ? No. Exclusions:female 56 older Radiation Therapy Planning Treatment Site 1 Treatment intent Curative Line of treatment Definitive Treatment site Right Upper lobe of lung Technique IGRT and SBRT SBRT sub-technique IMRT IGRT localization type Daily CBCT Special service Special treatment procedure Medical necessity statement Advanced radiotherapy technique will require additional treatment planning time and effort for optimization. Prescribed fraction dose 1250 cGy Prescribed total dose 5000 cGy Prescribed number of fractions 4 Frequency Every 1 day Energy MV Patient position Supine, head first Immobilization Cradle, Breath Hold and Gating I am ordering CT guidance for placement of XRT castro Yes Scan area: thorax Isocenters: tentative isocenter Slice thickness: 1mm [facility] Scan requested: Yes - Simulation will be performed on CT Scanner to accomplish a reproducible treatment position, to determine optimal beam arrangements and to .design beam modifying devices and immobilization devices: Alphacradle. Verification Sim (films Day1): Yes Ongoing images: Daily image guided radiotherapy. Image fusion requested: will be performed using patient's PET/CT A 4D CT will be performed for assessment of respiratory motion and deformation of the target volume. This assessment was used to generate an internal target volume designed for maximal normal tissue sparing and reduction of ptv margins. Additional comments: [facility] 01-01-2024 Note Accompanied by Virgie arreaga. States here to discuss treatment options for newly diagnosed lung cancer. has history of lung cancer in left lung, treated with lobectomy [place] [address]owalski at [facility]. Denies any chemo or radiation at that time. new cancer in right lung discovered on surveillance CT scan in October 2023. father and sister 2 months apart from lung cancer. unexpectedly in November 2023. going to grief counseling with Hospice and is seeing grief counselor 1 on which she states is helping her process her grief. has good support group of friends. son lives in [place] and has daughter in [place]. has some discomfort across bra line posteriorly - grades as /10. takes Tylenol if needed with relief. dyspnea is unchanged since lobectomy in 2018. Denies cough. Denies hemoptysis. appetite is starting to come back. Denies weight loss prior to 's . Denies issues with elimination. Denies hematuria or hematochezia. was working on smoking cessation, and has resumed the patch today in trying to quit. 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 Denies prior chemo or radiation. Denies implantable devices. Denies history of connective tissue disease. [facility] 01-01-2024 Note [facility] Department of Radiation Oncology [address] [place] [address] RADIATION ONCOLOGY CONSULTATION NOTE Date of Service: 01/01/24 Patient Name: Ana Maria Andrade Patient : 1965 Diagnosis: 58 y.o. 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 Chief Complaint: I have lung cancer. History of Present Illness: Patient presents in initial Radiation Oncology consultation as per the request of Dr. Kowalski of Thoracic Surgery. We have been asked to evaluate the patient for radiotherapy options for recently diagnosed poorly differentiated adenocarcinoma of RUL. I first heard about the patient from Dr. Kowalski more than a month ago, and was supposed to see her earlier, however, patient had a personal tragedy ( suddenly ), and she has been grieving. She is feeling a bit better with the passage of time, with the help of her supportive friends and family, as well as sessions with a grief counselor. Prior to her loss, she had cut down on smoking to <0.5 ppd, but since then has reverted to 1 ppd. She has exertional dyspnea but it does not stop her from working or being active; for example, she gets short of breath if she carries a laundry basket full of laundry up the stairs. She denies cough, hemoptysis, chest pain, poor appetite (except for a couple of weeks after spouse's sudden passing), weight loss, bony pain, neurologic symptoms. I reviewed the patient's oncologic, medical, surgical, social, and family history, as well as allergies/medications as per the medical record. SocHx: [place] last [place]. 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 Son lives in [place]. Social History Tobacco Use Smoking status: Every Day Packs/day: .5 Types: Cigarettes Smokeless tobacco: Never Tobacco comments: Smoked 1 ppd x 42 years, now 0.5 ppd and started using patch today. Substance Use Topics Alcohol use: Yes Alcohol/week: 2.0 standard drinks of alcohol Types: 2 Shots of liquor per week Comment: daily Drug use: Not Currently Types: Marijuana FamHx: Family History Problem Relation Lung cancer Father Lung cancer Sister Review of Systems: I reviewed the Review of Systems with the patient. Clinically pertinent ones noted in the HPI. All others have been reviewed and are negative. Physical Exam: BP 129/81 (BP Location: Left arm, Patient Position: Sitting, BP Cuff Size: Adult) Pulse 72 Temp 36.8 ???C (98.2 ???F) (Oral) Resp 16 Ht 1.549 m (5' 1 ) Wt 68.2 kg (150 lb 6.4 oz) BMI 28.42 kg/m??? GENERAL: ECOG 1-2, well-appearing, in no apparent distress, alert and fully oriented, answers questions appropriately, accompanied by her cousin. HEENT: Normocephalic, atraumatic, PER, EOMI, mucous membranes moist, no suspicious asymmetry or abnormal mass lesions. NECK: No cervical or supraclavicular lymphadenopathy. LUNGS: Clear to auscultation bilaterally. HEART: Normal rate, regular rhythm. Normal S1/S2, no murmurs/rubs/gallops appreciated. ABD: No visceromegaly or masses. EXTREMITIES: Normal range of motion, no cyanosis/clubbing/edema. LYMPH: No appreciable adenopathy. 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 PSYCH: Appropriate affect for the clinical situation. Insight and judgment not impaired. LABS: No recent studies. RADS: === 10/27/23 === CT CHEST WO IV CONTRAST - Impression - 1. There is a spiculated right upper lobe lung nodule, smaller more peripheral 3 mm nodular opacity in this region.. 2. Other chronic findings as described 10/16/[address] scan personally reviewed. PATH: 10/27/2023 Component Addendum A. Immunostains show tumor cells are positive for TTF-1 and negative for p63. Controls were adequate. 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 Addendum electronically signed by Yohana Cobb MD on 11/09/2023 at 1518 Final Diagnosis A. Lung, right upper lobe, Ion-guided fine needle aspiration: - Non-small cell carcinoma. - See comment. B. Lung, right upper lobe, bronchoalveolar lavage: - Non-small cell carcinoma. - Rare tumor cells present in cell block. Assessment: 58 y.o. 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 Plan: Patient's imaging is ~2.5 months old, and needs to be repeated to ascertain the clinical stage at this time. If she has localized disease similar to how it looked in September 2023, then recommend a course of ablative radiotherapy with stereotactic cindy (more content not included)... [facility] 11-03-[address] Meghana brown the results Called the patient who didn't telephone order supervisor Melody Santana MD Interventional Pulmonary Medicine Pulmonary and Critical Care Medicine [facility] 10-27-2023 Note Patient: Ana Maria dhillon Procedure Summary Date: 10/27/23 Room / Location: [facility] Main Operating Room Anesthesia Start: 1205 Anesthesia Stop: 1327 Procedure: BRONCHOSCOPY Diagnosis: Lung nodule Scheduled Providers: Melody Santana MD; Eh Guidry MD Responsible Provider: Eh Guidry MD Anesthesia Type: general ASA Status: 3 Anesthesia Type: general Vitals Value Taken Time BP 145/83 10/27/23 1328 Temp 36 10/27/23 1328 Pulse 76 10/27/23 1328 Resp 16 10/27/23 1328 SpO2 92 10/27/23 1328 Anesthesia Post Evaluation Patient location during evaluation: PACU Patient participation: complete - patient participated Level of consciousness: awake and alert Pain score: 0 Pain management: adequate Airway patency: patent Two or more strategies used to mitigate risk of obstructive sleep apnea Cardiovascular status: acceptable Respiratory status: acceptable Hydration status: acceptable Patient is hemodynamically stable and is able to be discharged from PACU per anesthesia protocol. No notable events documented. [facility] 10-27-2023 Note Airway Date/Time: 10/27/2023 12:22 PM Urgency: elective Airway not difficult General Information and Staff Patient location during procedure: OR Anesthesiologist: Eh Guidry MD Resident/GROUND WOOD SUPERVISOR/CAA: Davonte Leiva MD Performed: resident/GROUND WOOD SUPERVISOR/CAA Indications and Patient Condition Indications for airway management: anesthesia Spontaneous Ventilation: absent Sedation level: deep Preoxygenated: yes Patient position: sniffing Mask difficulty assessment: 1 - vent by mask Planned trial extubation Final Airway Details Final airway type: endotracheal airway Successful airway: ETT Cuffed: yes Successful intubation technique: video laryngoscopy Facilitating devices/methods: intubating stylet Endotracheal tube insertion site: oral Blade: Flood Blade size: #3 ETT size (mm): 7.5 Cormack-Lehane Classification: grade I - full view of glottis Placement verified by: capnometry Measured from: lips ETT to lips (cm): 22 Number of attempts at approach: 1 [facility] 10-27-2023 Note Patient: Ana Maria dhillon Procedure Information Date/Time: 10/27/23 1200 Scheduled providers: Melody Santana MD; Eh Guidry MD Procedure: BRONCHOSCOPY Location: [facility] Main Operating Room Relevant Problems Cardio (+) Hypertension Neuro/Psych (+) Stroke (CMS/HCC) (no residual deficits) Respiratory (+) Large cell carcinoma of left lung (CMS/HCC) (Hx of left upper lobectomy 5 years ago) (+) Lung cancer (CMS/HCC) Other (+) Current smoker Clinical information reviewed: Tobacco Allergies Meds Med Hx Surg Hx OB Status Fam Hx Soc Hx Physical Exam Airway Mallampati: II TM distance: >3 FB Neck ROM: full Cardiovascular - normal exam Dental (+) upper dentures, lower dentures Pulmonary (+) decreased breath sounds Abdominal Abdomen: soft Other findings: Current smoker; status post left lobectomy for cancer. Anesthesia Plan ASA 3 general The patient is a current smoker. Patient was previously instructed to abstain from smoking on day of procedure. Patient smoked on day of procedure. intravenous induction Postoperative administration of opioids is intended. Anesthetic plan and risks discussed with patient and spouse. Use of blood products discussed with patient and spouse who consented to blood products. Plan discussed with attending. Additional Equipment Requests [facility] 10-27-2023 Note PROCEDURE: CT CHEST WITHOUT CONTRAST CLINICAL INDICATION: Lung nodule, history of prior left upper lobectomy. COMPARISON: Multiple chest CTs dating back to 08/06/2018 TECHNIQUE: CT was performed of the without intravenous contrast. Coronal & sagittal MPR images were generated and reviewed. FINDINGS: Lower Neck & Thyroid: Unremarkable. Lungs: Redemonstrated changes of left upper lobectomy, regions of left lung scarring noted. There is a spiculated right upper lobe lung nodule near the apex measuring 10 mm (10/04). Diffuse mild to moderate emphysema. There is additional more small peripheral nodular opacity within the right upper lobe (10/05) measuring 3 mm. Central Airway: Unremarkable. Pleura: No pleural effusion, thickening or pneumothorax. Thoracic Aorta & Great Vessels: Normal in diameter. Moderate atherosclerotic calcification. Pulmonary Arteries: Postsurgical changes from prior left upper lobectomy. Heart & Pericardium: Mild coronary arterial calcification. Unremarkable cardiac morphology and pericardium. Lymph Nodes: No enlarged thoracic lymph nodes. Mediastinum & Esophagus: Unremarkable. Thoracic Spine & Chest Wall: No suspicious osseous lesion. Other Lines/Tubes/Devices/Hardware: None. Visualized Upper Abdomen: Low attenuating right hepatic lobe mass anteriorly measures 3.2 cm, similar sized 2 remote exam from 2019.. There is a left adrenal nodule roughly 9 mm, similar in size from remote exam IMPRESSION: 1. There is a spiculated right upper lobe lung nodule, smaller more peripheral 3 mm nodular opacity in this region.. 2. Other chronic findings as described All CT scans at this facility use dose modulation, iterative reconstruction, and/or weight based dosing when appropriate to reduce radiation dose to as low as reasonably achievable. Electronically signed: Jose Estrada [facility] 10-19-2023 Note ------ Attestation signed by Melody Santana MD at 10/19/2023 6:15 PM Total time spent on day of encounter: 30 minutes Attending attestation: GC: I personally spoke with this patient via telephone on the day of the encounter, performed the conde portion(s) of the service and participated in the management and confirm the fellow's documentation. Physical examination was not performed and may limit some portions of the clinical encounter. Please note there may be an additional personal documentation from me. ------ Pulmonary Tele Visit Note Patient: Ana Maria Andrade Age: 57 y.o. : 1965 Account No.: [id number] Referring physician: Dr. 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 Patient was refer to us by Dr. Zaman (CT surgery) for biopsy evaluation. Patient is currently smoker, she reports no change in her breathing, no weight changes. History reviewed. No pertinent past medical history. Past Surgical History: Procedure Laterality Date HYSTERECTOMY LUNG LOBECTOMY Left 01/30/2018 Left upper Allergies: Patient has no known allergies. Prior to Admission medications Medication Sig Start Date End Date Taking? Authorizing Provider ALPRAZolam (Xanax) 0.5 mg tablet TAKE 1 TABLET BY MOUTH TWICE A DAY FOR 30 DAYS 09/30/23 Historical Provider, amLODIPine (Norvasc) 10 mg tablet Take 10 mg by mouth in the morning. 09/08/23 Historical Provider, MD Taylor Aerosphere 160-9-4.8 mcg/actuation HFA aerosol inhaler Inhale 2 puffs in the morning and at bedtime. 04/07/23 Historical Provider, losartan (Cozaar) 50 mg tablet Take 50 mg by mouth in the morning. 10/24/22 Historical Provider, metoprolol succinate XL (Toprol-XL) 100 mg 24 hr tablet 10/10/23 Historical Provider, minoxidil (Loniten) 2.5 mg tablet Take 2.5 mg by mouth in the morning. 06/11/23 Historical Provider, PARoxetine CR (Paxil-CR) 25 mg 24 hr tablet TAKE 1 TABLET BY MOUTH EVERY DAY IN THE MORNING FOR 30 DAYS 08/02/23 Historical Provider, traMADol (Ultram) 50 mg tablet TAKE 1 TABLET BY MOUTH THREE TIMES A DAY NEEDED FOR 7 DAYS 12/27/22 Historical Provider, Social history: reports that she has been smoking cigarettes. She has been smoking an average of 1 pack per day. She does not have any smokeless tobacco history on file. Alcohol use questions deferred to the physician. Drug use questions deferred to the physician. 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 Total time spent in Medical Discussion including obtaining history from the patient, review of labs, tests with the patient, discussion of assessment and plan 30 minutes. The visit was initiated by the patient and conducted [id number] with use of audio-only real time telephone communication between patient and provider for a virtual visit. Verbal consent to provide and bill this service was obtained on: 10/19/23 No signature was obtained due to the COVID-19 pandemic. Anju Cavanaugh MD [facility] Pulmonary/Critical Care Fellow [facility] 08-17-2023 Evaluation note Encounter Date Diagnosis Assessment Notes Jul, Anxiety (ICD-10 - F41.9) Rx sent to pharmacy. Call if not helpful in 3-4 weeks. Jul, Essential hypertension (ICD-10 - I10) BP stable on present medications [facility] Other 12-21-2023 Evaluation note* Encounter Date Diagnosis Assessment Notes Treatment Notes Treatment Clinical Notes Jun, Essential hypertension (ICD-10 - I10) [facility] Other 2023 Evaluation note* Encounter Date Diagnosis Assessment Notes Treatment Notes Treatment Clinical Notes May, Essential hypertension (ICD-10 - I10) [facility] Other 11-20-2023 Evaluation note* Encounter Date Diagnosis Assessment Notes Treatment Notes Treatment Clinical Notes May, Anxiety (ICD-10 - F41.9) [facility] Other 11-16-2023 Evaluation note* Encounter Date Diagnosis Assessment Notes Treatment Notes Treatment Clinical Notes May, Essential hypertension (ICD-10 - I10) Pt declines offer to add an additional med. Will resume amlodipine and call with readings next week. May, Solitary pulmonary nodule (ICD-10 - R91.1) Reviewed treatment plan w Dr. Kowalski [facility] Other 06-06-2023 Evaluation note* Encounter Date Diagnosis Assessment Notes Treatment Notes Treatment Clinical Notes Dec, Rib pain on left side (ICD-10 - R07.81) Check xray to determine if fracture. Discussed potential 6 weeks of tenderness. Will call with xray result. [facility] Other 04-20-2023 Evaluation note* Encounter Date Diagnosis Assessment Notes Treatment Notes Treatment Clinical Notes Oct, Wellness examination (ICD-10 - Z00.00) Personalized health advice was given to the beneficiary with a referral, if appropriate, to health education of preventative counseling services or programs aimed at reducing identified risk factors and improving self-management or community-based lifestyle interventions to reduce health risks and promote self-management and wellness, including weight loss, physical activity, smoking cessation, fall prevention and nutrition. A written plan for screenings discussed, including colonoscopy, mammography, flu vaccination, other vaccinations if at risk, routine lab studies, eye exams, glaucoma screening, skin checks, risk factors for medical problems discussed, including BP control, obesity, and need for consistent exercise. Counseling was provided here today - specifically in regard to any positively answered questions as noted above. Oct, Hypertriglyceridemia (ICD-10 - E78.1) continue meds and recheck labs Oct, Anxiety (ICD-10 - F41.9) dis cussed medication and stressors Oct, Essential hypertensi on (ICD-10 - I10) continue present med and recheck in 4 months Oct, Screening mammogram for breast cancer (ICD-10 - Z12.31) [facility] Other 01-20-2023 Evaluation note* Encounter Date Diagnosis Assessment Notes Treatment Notes Treatment Clinical Notes Jul, Essential hypertension (ICD-10 - I10) Adding losartan to her allergy list and initiating Norvasc. [facility] Other 07-10-2018 History of Present illness Narrative* Ms. Andrade is a pleasant 57 year old female, current smoker, who is s/p Lt upper lobectomy by Dr. Kowalski 01/30/2018 for a large cell carcinoma. She did well after that surgery. Has been followed by in Valent[place] for her emphysema/this history. She has some mild dyspnea at baseline. On CT chest from February was noted to have slight increase in the size of a right apical nodule. She denies anyother respiratory complaints. * Has lost some weight recently 2/to having multiple teeth removed. Otherwise activity and energy level have been good. 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 Smokes 1ppd most days. Has attempted to quit with Chantix as well as NRT products without success. [facility] [address] [facility] Work Phone: Evaluation noteNo assessment information available [facility] Work Phone: Evaluation noteNo InformationNort [employer] Other Evaluation note* Diagnosis Onset Date Resolution Status Anxiety acute Primary non-small cell carcinoma of right lung acute [facility] Work Phone: History general Narrative - Reported* Type Description Date Medical History Body mass index (BMI) of 25.0 to 29.9 Medical History Current tobacco use Medical History Obesity Medical History Cigarette nicotine d ependence with nicotine-induced disorder Medical History Essential hypertension Medical History Sinusitis, acute Medical History Encounter for cosmetic procedure Medical History Right cervical radiculopathy Medical History Left sided chest pain Medical History Anxiety Medical History Subcutaneous cyst Medical History Hypertriglyceridemia Medical History Solitary pulmonary nodule Medical History Hepatic adenoma Medical History Mass of upper lobe of lung Medical History Centrilobular emphysema Medical History Cigarette nicotine d ependence with nicotine-induced disorder Medical History Muscle tension headache Medical History Malignant neoplasm o f upper lobe, left bronchus or lung Medical History History of tobacco use Medical History Nicotine abuse Surgical History HYSTERECTOMY Surgical History L THUMB TRIGGER FINGER PROCEDUR E 05/2013 Surgical History LEFT UPPER LOBECTOMY-LUNG CANCE R 01/2018 Hospitalization History SEE SURGICAL HX [facility] Other History general Narrative - Reported* Type Description Date Medical History Body mass index (BMI) of 25.0 to 29.9 Medical History Current tobacco use Medical History Obesity Medical History Cigarette nicotine d ependence with nicotine-induced disorder Medical History Essential hypertension Medical History Sinusitis, acute Medical History Encounter for cosmetic procedure Medical History Right cervical radiculopathy Medical History Left sided chest pain Medical History Anxiety Medical History Subcutaneous cyst Medical History Hypertriglyceridemia Medical History Solitary pulmonary nodule Medical History Hepatic adenoma Medical History Mass of upper lobe of lung Medical History Centrilobular emphysema Medical History Cigarette nicotine d ependence with nicotine-induced disorder Medical History Muscle tension headache Medical History Malignant neoplasm o f upper lobe, left bronchus or lung Medical History History of tobacco use Medical History Nicotine abuse Surgical History HYSTERECTOMY Surgical History L THUMB TRIGGER FINGER PROCEDUR E 05/2013 Surgical History LEFT UPPER LOBECTOMY-LUNG CANCE R 01/2018 Surgical History Teeth extractions 09/2022 Hospitalization History SEE SURGICAL HX [facility] Other Summary Purpose Family History No Family History Records FoundUnknown Family Member Name Dates Details Family history of lung cance r: Father, Sister(V16.1, Z80.1) Status:Active Relationship Condition Age at Onset Recorded Date/T isabel father Malignant neoplasm Unknown Family history of lung cancer Unknown Unknown Hypertension Unknown Diabetes mellitus Unknown Not Specified Heart disease Unknown Family history of mental disorder Unknown sister Family history of lung cancer Unknown Malignant neoplasm Unknown Relationship Condition Age at Onset Recorded Date/T isabel father Malignant neoplasm Unknown Family history of lung cancer Unknown Unknown Hypertension Unknown Diabetes mellitus Unknown mother Heart disease Unknown Family history of mental disorder Unknown sister Family history of lung cancer Unknown Malignant neoplasm Unknown Advance Directives No Advanced Directives Records Found Advance Directive Response Recorded Date/ Time Advance Directives No December 25 8 12:25pm Chief Complaint New patient visit Chief Complaint and Reason for Visit Chief Complaint r91.1 j63.9 r06.02 Chief Complaint Discuss new diagnosi s, FMLA paperwork Reason for Visit Anxiety Primary non-small cell carcinoma of right lung Chief Complaint 3 month f/u Additional Source Comments INFORMATION SOURCE (unrecogn ized section and content) DATE CREATED AUTHOR 07/15/2022 [facility] DATE CREATED AUTHOR AUTHOR'S ORGANIZ ATION 04/05/2023 [facility] DATE CREATED AUTHOR AUTHOR'S ORGANIZ ATION 04/06/2023 [employer] DATE CREATED AUTHOR AUTHOR'S ORGANIZ ATION 05/22/2023 [facility] DATE CREATED AUTHOR AUTHOR'S ORGANIZ ATION 06/07/2024 [facility] REASON FOR VISIT (unrecogniz ed section and content) BP MED CHECKWellnessRibshigh bpNew Refill Requesthigh bpNew Refill RequestRefillsBPsNew Refill Requestmedication discussion Goals (unrecognized section and content) Goals may be documented in a n alternate section Care Teams (unrecognized sec tion and content) Team Status: Active Member Role Status Dates Sharda Edwards MD Primary Care Provider Active Team Status: Inactive Member Role Status Dates Sharda Edwards MD Primary Care Provide r, Attending Provider Active Start: February 29, 2024 End: February 29, 2024 Team Status: Active Member Role Status Dates Provider Conversion Attending Provider Active St art: August 22, 2023 Team Status: Active Member Role Status Dates Sharda Edwards MD Primary Care Provide r, Attending Provider Active Start: November 09, 2023 Team Status: Inactive Member Role Status Dates Sharda Edwards MD Primary Care Provide r, Attending Provider Active Start: November 13, 2023 End: November 13, 2023 Team Status: Inactive Member Role Status Dates Sharda Edwards MD Primary Care Provider Active Real Kowalski MD Attending Provider Active FOR RECORDS PERTAINING TO PATIENTS WHO ARE OR HAVE BEEN ENROLLED IN A CHEMICAL DEPENDENCY/SUBSTANCEABUSE PROGRAM, SOME INFORMATION MAY BE OMITTED. This clinical summary was aggregated from multiple sources. Caution should be exercised in using it in the provision of clinical care. This summary normalizes information from multiple sources, and as a consequence, information in this document may materially change the coding, format and clinical context of patient data. In addition, data may be omitted in some cases. CLINICAL DECISIONS SHOULD BE BASED ON THE PRIMARY CLINICAL RECORDS. [facility] Training Advisor [facility]. provides no warranty or guarantee of the accuracy or completeness of information in this document.
== END 2024-08-23 09:16 | disposition home or self-care (01) ==
LOC: CT 09:16
PROVIDERS: PCP Family Medicine
DX: C34.11 Malignant neoplasm of upper lobe, right bronchus or lung (principal)
CPT/HCPCS: 71250

== ENCOUNTER 2024-11-25 09:50 | Outpatient (OUT) | payer BC, SELFPAY ==
--- NOTE | 2024-11-25 10:12 | CT_ITS ---
The [address] [address] Patient Name: ANTIONETTE ANDRADE MRN: [id number] date: 1965 Sex: F Assigned Patient Location: CT Current Patient Location: CT Accession/Order Number: [id number] Exam Date: 11/25/2024 12:06 Report Date: 11/25/2024 12:09 At the request of: KELTON GRACIA Procedure: CT chest wo con CT CHEST WITHOUT IV CONTRAST: CLINICAL HISTORY: Malignant neoplasm of right upper lobe COMPARISON: CT chest 08/23/2024 TECHNIQUE: Spiral images were obtained through the chest without IV contrast. This CT exam was performed using one or more following dose reduction techniques: Automated exposure control, adjustment of the mA and/or kV according to patient size, or use of iterative reconstruction technique. FINDINGS: Mediastinum:Thoracic aorta appears normal in caliber. Pulmonary trunk appears nondilated. No pericardial effusion. No lymphadenopathy. The esophagus is grossly unremarkable. Lungs:Postreduction changes involving the left lung. No consolidation pneumothorax or pleural effusion. Emphysema with lung scarring. No suspicious pulmonary nodule or mass. Abd:Stable indeterminate lesion involving the liver. Soft tissues/Bones: Soft tissues surrounding the chest wall demonstrate no acute process. Osseous structures demonstrate degenerative change. Postoperative changes involving the right rib cage. CT/CT chest wo con IMPRESSION: No CT evidence of progression of disease. Impression dictated by: Kartik Light Jr., D.O. 11/25/2024 12:09 PM Dictation Location: [place] [address] Electronically authenticated by: [id number] Y Date: 11/25/2024 12:09
== END 2024-11-25 09:51 | disposition home or self-care (01) ==
LOC: CT 09:50
PROVIDERS: PCP Family Medicine
DX: C34.11 Malignant neoplasm of upper lobe, right bronchus or lung (principal)
CPT/HCPCS: 71250